=== PATIENT | male | born 1960 | race Caucasian/White ===

== ENCOUNTER → 2023-10-25 12:09 | Outpatient (REF) | payer OTHER, SELFPAY | LOC: DHCBC/DCA 12:09 | PROVIDERS: ATTENDING PHYSICIAN Internal Medicine Cardiovascular Disease; FAMILY PHYSICIAN Family Medicine | DX: Z01.810 Encounter for preprocedural cardiovascular examination (principal) | CPT/HCPCS: 78452; 93017; A9500; J2785 ==

== ENCOUNTER → 2023-10-26 15:50 | Outpatient (REF) | payer OTHER, SELFPAY | LOC: DHCBC HW 15:50 | PROVIDERS: ATTENDING PHYSICIAN Internal Medicine Cardiovascular Disease; FAMILY PHYSICIAN Family Medicine | DX: Z01.810 Encounter for preprocedural cardiovascular examination (principal); R06.09 Other forms of dyspnea; R07.9 Chest pain, unspecified; I10 Essential (primary) hypertension | CPT/HCPCS: 93306 ==

== ENCOUNTER 2023-10-27 06:10 | Day surgery (SDC) | payer OTHER, SELFPAY ==
[2023-10-27] VITALS (10 sets, daily range): BP systolic 137–149; BP diastolic 80–87; BMI 33.6
[2023-10-27] MEDS: NSS 283 ML IV (07:27)
[2023-10-27] MEDS: NSS 1000 IV (08:26)
--- NOTE | 2023-10-27 08:27 | ITS.CL.CATH ---
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
Cardiac Catheterization
Procedure Report:
CARDIAC CATHETERIZATION REPORT
Date of Procedure: 10/27/2023
Referring: Fredrick Duron MD
Indication: Exertional dyspnea with ischemic stress test preop for open vascular surgery (left lower extremity bypass)
HEMODYNAMIC DATA
AO: 136/78
LV: 136/22
LEFT VENTRICULOGRAPHY: Mild anterolateral hypokinesis with severe inferior hypokinesis. The LVEF is 48%.
CORONARY ANGIOGRAPHY
Dominance: Right
Left Main: Normal
LAD: Calcified eccentric 90% bifurcation lesion involving the mid LAD and large second septal pediatric cns. The remainder of the LAD system has mild luminal irregularities
Circumflex: The circumflex is a small caliber vessel which is occluded distal to the takeoff of a tiny OM1 and OM 2 vessels. The large OM 3 fills retrograde via left to left collaterals. There is at least one left posterolateral partially filling
retrograde via left to left collaterals.
RCA: The RCA is proximally occluded. A medium sized RPDA and two medium sized RPL vessels fill via [id number] collaterals
Closure Device: None-the procedure was performed via the right radial artery. The Chandana's test was normal prior to the procedure.
Radiation (mGy): 373
DAP (cm2.Gy): 32.2
Fluoroscopy time: 1.8 minutes
CONCLUSIONS
1: Elevated LVEDP
2: Mild anterolateral and severe inferior hypokinesis with EF 48%
3. Severe calcific triple-vessel CAD as described
4. Recommend elective CABG with grafting of the LAD, OM 3, and RPDA
Copy to: Fredrick Duron MD, Pooja Corbin MD, Miguel Salinas MD
Nash Hooper MD, [facility], [facility]
--- NOTE | 2023-10-27 08:37 | PTCARENOTE ---
CAMILO Varela, at pt bedside speaking to pt and pt's friend.
--- NOTE | 2023-10-27 09:33 | CONSULT.CT ---
Consultation
-
Date/Time Consultation Requested: 10/27/23
Date/Time Consultation Performed: 10/27/23929
Requesting Provider: Dr. Nash Hooper MD.
Performing Provider: Nichole Mccarthy PA-C on behalf of Dr. Miguel Salinas MD.
Reason for Consultation: Multivessel CAD, evaluate for coronary artery revascularization
Patient History
Physicians
Family Physician: Dr. Pooja Corbin
Outpatient Silk Screen Processor: Dr. Fredrick Duron MD.
Inpatient Silk Screen Processor: [facility], Research And Development Chemist: Dr. Nash Hooper MD.
History of Present Illness
Patient is an extremely pleasant 62-year-old male with PMH of HTN, HLD, BUTCH, current everyday smoker/tobacco abuse (smoked for total of 40 to 45 years. Currently 1 to 2 packs/day for the past 40-45 years prior to that roughly 1 pack/day),
daily alcohol use 3-5 beers 3 to 5 days/week, bilateral lower extremity popliteal artery aneurysms, left > right. Left originally being evaluated for surgical intervention with left lower extremity arterial bypass by Dr. Whiting, and obesity class 1,
BMI of 33.6.
Patient has been having ongoing chest discomfort as well as dyspnea upon exertion/shortness of breath. Patient originally began his cardiac workup for clearance in preparation for his vascular surgery by Dr. Whiting. Patient being evaluated for left
lower extremity arterial bypass. He was seen by Dr. Oliverio MD. as an outpatient in the office on 10/20/23 and subsequently set up for a nuclear stress test on for which was positive revealing basilar inferior lateral and mid inferior
lateral ischemia as well as a reduced ejection fraction of 27%.
On 10/26/2023 patient underwent 2D transthoracic echocardiogram revealing left ventricular ejection fraction of 55%, trace MR. No or AI. Trace TR, and normal pulmonic valve. LVSD:35, LVDD: 48, PAP's: 15-20. Given these results he was scheduled
for cardiac catheterization performed today 10/27/[address] Hooper revealing: LVEF 48%, LM: normal, LAD: 90% bifurcation lesion ivoloving the mid LAD and large second septal perferator. LCx: small, occluded distal to the takeoff of a tiny OM1,
and OM2. OM3 fills retrograde vial L-L collaterals. RCA: proximally occluded. Medium RPDA and RPL fill via L-R collaterals.
Following cardiac catheterization, cardiothoracic surgery service was consulted for coronary artery revascularization evaluation.
Past Medical History
Past Medical History: Other
HTN
HLD
BUTCH
Current everyday smoker/tobacco abuse (smoked for total of 40 to 45 years. Currently 1 to 2 packs/day for the past 40-45 years, prior to that roughly 1 pack/day)
Daily alcohol use 3-5 beers 3 to 5 days/week, bilateral lower extremity popliteal artery aneurysms, left > right. Left originally being evaluated for surgical intervention with left lower extremity arterial bypass by Dr. Whiting.
Obesity class 1, BMI of 33.6.
Past Surgical History
Past Surgical History: Other
Patient denies any previous surgical interventions
Dental History
Noncontributory
Family History
Mother: Still Living (Diagnosed with Basal cell carcinoma )
Father: at Age
Family Medical History: CAD
Social History
Alcohol: Daily (3-5 beers 3 to 5 days/week)
Drug: None
Tobacco: Smoker (Current everyday smoker/tobacco abuse (smoked for total of 40 to 45 years. Currently 1 to 2 packs/day for the past 40-45 years, prior to that roughly 1 pack/day))
Personal: Single
Living: Other (Girlfriend/significant other)
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
Allergies
Allergy/AdvReac Type Severity Reaction Status Date / Time
No Known Allergies Allergy Verified 10/27/23 07:35
Home Medications
Medication Instructions Recorded Confirmed Type
fluticasone fur. 200 mcg-umeclid 1 inh inhalation DAILY 10/19/23 10/27/23 History
62.5 mcg-vilant 25 mcg
inhalat.powder (Trelegy Ellipta)
lisinopril 20 mg tablet 20 mg PO DAILY 10/19/23 10/27/23 History
simvastatin 80 mg tablet 80 mg PO DAILY 10/19/23 10/27/23 History
aspirin 81 mg tablet,delayed 81 mg PO DAILY #0 tabs 10/27/23 10/27/23 Rx
release
carvedilol 6.25 mg tablet 6.25 mg PO Daily 10/27/23 10/27/23 History
nitroglycerin 0.4 mg sublingual 0.4 mg sublingual [id number] PRN 10/27/23 Rx
tablet chest pain #25 tabs
Review of Systems
-
History Source: Patient
General: Denies Fever, Weight Gain, Weight Loss or Fatigue
HEENT: Denies Visual Changes, Dysphagia, Hoarseness or Sore Throat
Respiratory: Reports SOB, ZHENG and Cough; Denies Asthma or PND
Cardiac: Reports Chest Pain; Denies CAD, Known Vascular Disease, Palpitations, Nausea, Vomiting, Diaphoresis or Edema
Abdomen/GI: Reports Abdominal Pain and Indigestion; Denies Reflux, Nausea, Vomiting, BRBPR or Ulcers
: Reports Nocturia (2x per night ); Denies Dysuria, Frequency, Urgency or Hematuria
Musculoskeletal: Denies Myalgias or Arthralgias
Skin: Denies Itching or Rash
Neurological: Denies CVA, TIA, Headaches, Syncope, Dizzy or Seizures
Vascular: Reports Claudication (Numbness in fingers and toes ) and Other (PAD)
Physical Exam
Vital Signs
Temp 97.7 F 10/27/23 07:05
Temp route: Oral 10/27/23 07:05
Pulse 80 10/27/23 09:15
Resp Rate 18 10/27/23 09:15
Blood pressure 144/80 10/27/23 09:15
Blood pressure extremity used: Left upper arm 10/27/23 08:22
Position: Sitting 10/27/23 08:22
MAP (cuff-Leanne Monitor) 106 10/27/23 08:26
SaO2 94 10/27/23 09:15
Oxygen Mode of Delivery Room air 10/27/23 09:15
Can the patient verbally communicate their pain? Yes 10/27/23 09:15
Actual Weight 208 lb 1.862 oz 10/27/23 07:02
Body Mass Index (BMI) 33.6 10/27/23 07:02
Diagnostic Studies
WILFRED's:
0.77 R
0.63 L
Nuclear Stress Test: 10/25/23
EF: 27%
basilar inferior lateral and mid inferior lateral ischemia
TTE: 10/26/23
EF 55%
MV: Trace MR
AV: No or AI
TV: Trace TR
PV: Normal
LVSD: 35, LVDD: 48, PAP's:15-20
Cardiac Catheterization: 10/27/23
Guidera
LVEF 48%
LM: normal
LAD: 90% bifurcation lesion ivoloving the mid LAD and large second septal perferator.
LCx: small, occluded distal to the takeoff of a tiny OM1, and OM2. OM3 fills retrograde vial L-L collaterals.
RCA: proximally occluded. Medium RPDA and RPL fill via L-R collaterals.
Exam
General: Well Developed, Well Nourished and No Apparent Distress
HEENT: Normocephalic, Moist Mucous Membranes, Atraumatic, PERRLA and EOMI
Neck: Trachea Midline and Mass
Respiratory: Crackles, Rhonchi and Other (Bilateral expiratory wheezes)
Cardiac: S1/S2 and Regular Rhythm; Negative Murmur, Rub or Gallop
GI: Soft, Non Tender, Normal Bowel Sounds and Distended (at baseline )
Rectal: Deferred by Provider
Skin: Warm and Dry; Negative Rash
Neuro: AO x 3, No Motor Deficits and CN X-XII Intact
Extremities: Negative Upper Level Edema, Lower Level Edema, Upper Level Cyanosis, Lower Level Cyanosis, Upper Level Clubbing or Lower Level Clubbing
Psych: Calm
Assessment / Plan
-
Assessment:
62-year-old male with PMH of:
HTN
HLD
BUTCH
Current everyday smoker/tobacco abuse (smoked for total of 40 to 45 years. Currently 1 to 2 packs/day for the past 40-45 years, prior to that roughly 1 pack/day)
Daily alcohol use 3-5 beers 3 to 5 days/week, bilateral lower extremity popliteal artery aneurysms, left > right. Left originally being evaluated for surgical intervention with left lower extremity arterial bypass by Dr. Whiting.
Obesity class 1, BMI of 33.6.
Now found to have newly diagnosed:
Multivessel CAD
Reduced EF ranging from 27, 48, and 55%
Plan:
Patient's case was reviewed with attending physician Dr. Miguel Salinas MD.
Patient will be seen as an outpatient in consultation with Dr. Brad MD. on 10/30/23 At 11:00 am.
Card with appointment time and date was provided to patient.
No further testing is warranted while the patient is recovering from cardiac catheterization.
Further preoperative testing and surgical date will be determined at patient's consultation with Dr. Brad MD.
== END 2023-10-27 11:28 | disposition home or self-care (01) ==
LOC: CATH 06:10
PROVIDERS: ATTENDING PHYSICIAN Internal Medicine Cardiovascular Disease; CONSULT PHYSICIAN Thoracic Surgery (Cardiothoracic Vascular Surgery); FAMILY PHYSICIAN Family Medicine; OTHER PHYSICIAN Internal Medicine Cardiovascular Disease
DX: I25.10 Atherosclerotic heart disease of native coronary artery without angina pectoris (principal); R07.9 Chest pain, unspecified; R06.09 Other forms of dyspnea; R94.39 Abnormal result of other cardiovascular function study; I10 Essential (primary) hypertension; E66.9 Obesity, unspecified; J44.9 Chronic obstructive pulmonary disease, unspecified; Z68.35 Body mass index [BMI] 35.0-35.9, adult; F17.210 Nicotine dependence, cigarettes, uncomplicated; E78.5 Hyperlipidemia, unspecified; G47.33 Obstructive sleep apnea (adult) (pediatric); Z79.82 Long term (current) use of aspirin
CPT/HCPCS: 36415; 71046; 80048; 85025; 85610; 85730; 86850; 86900; 86901; 87070; 93458; C1894; Q9967

== ENCOUNTER → 2023-11-08 11:21 | Outpatient (REF) | payer OTHER, SELFPAY | LOC: HWRAD 11:21 | PROVIDERS: ATTENDING PHYSICIAN Thoracic Surgery (Cardiothoracic Vascular Surgery); FAMILY PHYSICIAN Family Medicine | DX: I25.10 Atherosclerotic heart disease of native coronary artery without angina pectoris (principal); J44.9 Chronic obstructive pulmonary disease, unspecified | CPT/HCPCS: 94727; 94729; 36600; 71260; 94060; Q9967 ==

== ENCOUNTER 2023-11-14 05:35 | Inpatient (IN) | payer OTHER, SELFPAY ==
[2023-11-07 08:30] VITALS: BMI 34.4
[2023-11-07 09:10] LABS: Urine Albumin Negative (Neg - Trace); Urine Bilirubin Negative (Negative); Urine Color Yellow; Urine Glucose Negative (Negative); Urine Ketone Negative (Negative); Urine Leukocyte Negative (Negative); Urine Nitrite Negative (Negative); Urine Occult Blood Trace (Negative); Urine Urobilinogen Negative (Neg - 1+)
[2023-11-07 09:10] LABS: Hematocrit 49.3 % (39.0-52.0); Hemoglobin 17.4 g/dL (13.0-18.0); Mean Corp Hgb Conc. 35.3 g/dL (33.0-37.0); Mean Corpuscular Hgb 31.6 pg (27.0-31.0); Mean Corpuscular Volume 89.5 fL (80.0-94.0); Mean Platelet Volume 9.9 fL (7.4-10.4); Platelet Count 289 10^3/uL (130-400); Red Blood Cell Count 5.51 10^6/uL (4.70-6.10); Red Cell Dist. Width 12.1 % (11.5-14.5); White Blood Cell Count 8.9 10^3/uL (4.8-10.8)
[2023-11-07 09:21] LABS: INR 1.05; PT 13.5 Sec (11.4-14.6)
[2023-11-07 09:21] LABS: Urine Character Clear (Clear)
[2023-11-07 09:22] LABS: APTT 29.5 Sec (23.4-35.0)
[2023-11-07 09:33] LABS: Urine Red Blood Cell 0-2 /HPF (0-2); Urine White Cell 0-2 /HPF (0-5)
[2023-11-07 09:36] LABS: ALT (SGPT) 77 U/L (0-50); AST (SGOT) 32 U/L (17-59); Albumin 4.2 g/dl (3.5-5.0); Alkaline Phosphatase 95 U/L (38-126); Blood Urea Nitrogen 17 mg/dl (9-20); Calcium 9.4 mg/dl (8.4-10.2); Carbon Dioxide 25 mmol/L (22-30); Chloride 109 mmol/L (98-107); Direct Bilirubin 0.5 mg/dl (0.0-0.4); Estimated Creatinine Clearance > 125 ml/min; Glucose 117 mg/dl (70-99); Potassium 4.5 mmol/L (3.5-5.1); Sodium 141 mmol/L (135-145); Total Bilirubin 0.6 mg/dl (0.2-1.3); eGFR > 60.00
--- NOTE | 2023-11-07 10:06 | CM ---
Chart reviewed. Met with the patient in PAT. Patient is independent of ADLS, lives with his girlfriend in a 1 [address], 10 SUAD, 0 DME. 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 Reviewed preoperative and postoperative instructions, along with
showering guidelines. Gave the patient 2 soaps, along with the Cardiac Surgery Book. Patient is agreeable to a home visit by CT Transitional RN. Plan is for the patient to return home with CT Transitional RN. CM to follow
[2023-11-07 10:33] LABS: B.E. 0.6 mmol/L; HCO3 24.6 mmol/L (21-28); O2 Saturation % 96.1 % (94-98); PCO2 37 mmHg (35-48); PO2 77 mmHg (83-108); pH 7.43 (7.35-7.45)
[2023-11-07 10:36] LABS: O2 Therapy RA
[2023-11-07 11:38] LABS: Glycohemoglobin (HgbA1c) 6.5 % (4.0-5.6)
--- NOTE | 2023-11-07 12:09 | W.PN.UPDATE ---
Update Note
Progress Note Update
Procedure Type:�Isolated CABG
PERIOPERATIVE OUTCOME ESTIMATE %
Operative Mortality 0.377%
Morbidity & Mortality 3.8%
Stroke 0.428%
Renal Failure 0.3%
Reoperation 1.79%
Prolonged Ventilation 2.23%
Deep Sternal Wound Infection 0.451%
Long Hospital Stay (>14 days) 1.57%
Short Hospital Stay (<6 days)* 70%
Clinical Summary
Planned Surgery: Isolated CABG, Urgent, First cardiovascular surgery
Demographics: 62 year old, White, male, 94.4kg, 168cm, BMI: 33.4 kg/m�
Lab Values: Creatinine: 0.6 mg/dL, Hematocrit: 49.3%, WBC Count: 8.9 10�/�L, Platelet Count: 664800 cells/�L
Substance Abuse: Current smoker, Alcohol use: >=8 drinks/week
Risk Factors / Comorbidities: Diabetes Mellitus , Hypertension, Family Hx of CAD
Pulmonary RF: Mild CLD, Sleep Apnea
Cardiac Status: NYHA Class I, Ejection Fraction = 55%
Coronary Artery Disease: 3 vessels diseased, Proximal LAD Stenosis >=70%, Unstable Angina
Valve Disease: Trivial/Trace MR, Trivial/Trace TR
[2023-11-14] VITALS (15 sets, daily range): BP systolic 83–139; BP diastolic 57–81; BMI 32.8
--- NOTE | 2023-11-14 06:00 | PTCARENOTE ---
Pt arrived to CVICU for same day procedure, CABG; ABO and type and screen confirmed with blood bank; pt clipped and prepped; x2 home showers confirmed; CHG wipes provided, new gown and socks; confirmed pt removed all jewelry and/or dentures; pt
answered all admissions questions; home medications confirmed with pt; pre-op medications administered, see MAR; day of surgery explained to pt; pt resting comfortably in bed; awaiting CVOR.
[2023-11-14] MEDS: MAGNESIUM OXIDE 500 MG PO (06:12)
[2023-11-14] MEDS: LOPRESSOR 25 MG PO (06:12)
[2023-11-14] MEDS: PROTONIX 40 MG PO (06:12)
[2023-11-14] MEDS: BACTROBAN 2% OINTMENT 1 APPLIC NASAL ×2 (06:12→20:06)
--- NOTE | 2023-11-14 08:21 | W.CVOR.SURPR ---
CVOR Surgeon Immed Pre Op
-
I have examined this patient prior to performance of the scheduled procedure.
The patient's condition is unchanged from the time of the dictated/written History and
Physical and the patient is able to undergo the scheduled procedure.
[2023-11-14 09:14] LABS: ACT+ - POC 96 Seconds (82-134)
[2023-11-14 09:21] LABS: B.E. - POC -0.4 mmol/L; Glucose - POC 123 mg/dl (65-99); HCO3 - POC 26 mmol/L (21-29); Hematocrit - POC 47 % PCV (42-52); Hemodilution- POC No; Hemoglobin Calculated - POC 15.9; O2 Saturation %Calculated-POC 99.9 5 (92-96); PCO2 - POC 45 mmHg (35-45); PO2 - POC 326 mmHg (80-100); Potassium - POC 4.3 mmol/L (3.6-5.0); Sodium - POC 143 mmol/L (135-145); pH - POC 7.36 (7.35-7.45)
[2023-11-14 09:22] LABS: Urine Albumin Negative (Neg - Trace); Urine Bilirubin Negative (Negative); Urine Character Clear (Clear); Urine Color Yellow; Urine Glucose Negative (Negative); Urine Ketone Negative (Negative); Urine Leukocyte Negative (Negative); Urine Nitrite Negative (Negative); Urine Occult Blood Negative (Negative); Urine Specific Gravity 1.015 (<1.030); Urine Urobilinogen Negative (Neg - 1+); Urine pH 6.5 (5.0-9.0)
--- NOTE | 2023-11-14 09:58 | CM ---
Chart reviewed. Patient is in the OR. Patient is independent of ADLS, lives with his girlfriend in a 1 [address], 10 SUAD, 0 DME. 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 Plan is for the patient to return home with CT Transitional RN. CM to follow
[2023-11-14 11:16] LABS: ACT+ - POC 578 Seconds (82-134)
[2023-11-14 11:49] LABS: B.E. - POC 0.9 mmol/L; Glucose - POC 119 mg/dl (65-99); HCO3 - POC 27 mmol/L (21-29); Hematocrit - POC 33 % PCV (42-52); Hemodilution- POC Yes; Hemoglobin Calculated - POC 11.4; Ionized Calcium - POC 1.04 mmol/L (1.12-1.27); O2 Saturation %Calculated-POC 99.8 5 (92-96); PCO2 - POC 49 mmHg (35-45); PO2 - POC 231 mmHg (80-100); Potassium - POC 5.6 mmol/L (3.6-5.0); Sodium - POC 139 mmol/L (135-145); pH - POC 7.35 (7.35-7.45)
[2023-11-14 11:53] LABS: ACT+ - POC 498 Seconds (82-134)
[2023-11-14 12:11] LABS: ACT+ - POC 586 Seconds (82-134)
[2023-11-14 12:24] LABS: ACT+ - POC 533 Seconds (82-134)
[2023-11-14 12:26] LABS: B.E. - POC 1.6 mmol/L; Glucose - POC 134 mg/dl (65-99); HCO3 - POC 26 mmol/L (21-29); Hematocrit - POC 36 % PCV (42-52); Hemodilution- POC Yes; Hemoglobin Calculated - POC 12.1; Ionized Calcium - POC 1.08 mmol/L (1.12-1.27); O2 Saturation %Calculated-POC 99.9 5 (92-96); PCO2 - POC 41 mmHg (35-45); PO2 - POC 271 mmHg (80-100); Potassium - POC 6.1 mmol/L (3.6-5.0); Sodium - POC 140 mmol/L (135-145); pH - POC 7.41 (7.35-7.45)
[2023-11-14 12:45] LABS: B.E. - POC -1.8 mmol/L; Glucose - POC 146 mg/dl (65-99); HCO3 - POC 24 mmol/L (21-29); Hematocrit - POC 33 % PCV (42-52); Hemodilution- POC Yes; Hemoglobin Calculated - POC 11.3; Ionized Calcium - POC 1.46 mmol/L (1.12-1.27); O2 Saturation %Calculated-POC 99.7 5 (92-96); PCO2 - POC 43 mmHg (35-45); PO2 - POC 218 mmHg (80-100); Potassium - POC 5.2 mmol/L (3.6-5.0); Sodium - POC 141 mmol/L (135-145); pH - POC 7.35 (7.35-7.45)
[2023-11-14 12:45] LABS: ACT+ - POC 456 Seconds (82-134)
[2023-11-14 13:03] LABS: ACT+ - POC 101 Seconds (82-134)
[2023-11-14 13:07] LABS: B.E. - POC -4.7 mmol/L; Glucose - POC 127 mg/dl (65-99); HCO3 - POC 22 mmol/L (21-29); Hematocrit - POC 35 % PCV (42-52); Hemodilution- POC Yes; Hemoglobin Calculated - POC 11.8; Ionized Calcium - POC 1.27 mmol/L (1.12-1.27); O2 Saturation %Calculated-POC 97.5 5 (92-96); PCO2 - POC 48 mmHg (35-45); PO2 - POC 110 mmHg (80-100); Potassium - POC 4.4 mmol/L (3.6-5.0); Sodium - POC 144 mmol/L (135-145); pH - POC 7.27 (7.35-7.45)
--- NOTE | 2023-11-14 13:49 | W.PN.CT.SURG ---
CT Surgery Operative Note
-
Pre-op Diagnosis: cad
pvd
copd
Post-op Diagnosis: Same
Procedure: Cabg x 3
mcclellan- lad
ab- om
ao-svg-pda
Revh
ttfm
RSF
Primary Surgeon: Brad
Assisting Surgeons: Dash
Specimen: None
Cultures: None
Complications / Blood Loss: None
Findings: CHHAYA with preserved ef pre and post, no new wma
good conduit
good lad target
poor om and pda target
no clot in LUCA, completely occlude post clip
--- NOTE | 2023-11-14 14:21 | W.PN.UPDATE ---
Update Note
Progress Note Update
62 year old male electively admitted 11/14 for CABG
BP 69min
XC 39min
IV fluids: 1800
U.O.:� 640
Blood:� none
Wires:� V-wires
Inotropes:� none
Pressors:� none
Sedatives:� Precedex
�
NEURO: sedated on Precedex, pupils +1mm B/L
RESP: #8OT @22cm> 600/60%/16/5. Lungs clear B/L. 1 mediastinal (10cc on arrival) and R/L pleural (30cc on arrival) chest tubes to -20cm suction. Sanguineous drainage
CV: RRR +S1, S2, no S3, no�rub, no murmur. Dermabond to median sternotomy. RIJ intact w/o [place]. C.O 4.6/CI 2.3
ABD: round, soft, no BS
EXT: no edema, +2/4 DP pulses B/L, no femoral bruit, RLE DONI wrap intact; left radial A-line intact
: Snider with clear yellow urine
�
A/P: POD #0 s/p CABG x 3 SAMANIEGO-LAD; LEANDRO-OM3; SVG-PDA; LUCA exclusion #40mm clip
CHHAYA: EF�45-50%; small PFO w/left to right shunt; Stage I diastolic dysfunction, tr MR
- wean and extubate
# CAD
-will administer ASA within 6 hours post-op
- resume beta-bela, ASA/Plavix, Statin (change to Lipitor) with Amio use
# PAD (moderate LLE arterial insufficiency)
- outpatient f/u with Dr. Whiting
�
# acute surgical blood loss anemia-expected
- trend CBC
# COPD
- resume Trelegy Ellipta on DC
- Albuterol/ProAir
# Tobacco abuse
- lifelong smoking cessation
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
# ETOH use
- Precedex periop
- assess for withdrawl symptoms
�
# T2DM (A1C 6.5)-new diagnosis
- insulin infusion x 48h
- consult endocrinology
�
# Hyperlipidemia
- resume�simvastatin 80mg on DC (if not on concomitant Amio)
[2023-11-14] MEDS: NSS 500 IV (14:30)
[2023-11-14] MEDS: STERILE WATER FOR INJECTION 16 ML IV ×2 (14:30)
[2023-11-14] MEDS: ZINACEF 1500 MG IV ×2 (14:30)
--- NOTE | 2023-11-14 14:30 | PTCARENOTE ---
Patient report via phone at 1315pm: YARI Orantes. Patient received to cvicu at approx 1430pm status post CABG x 3/LUCA clip. USual lines, but no swan candi: utilizing Maldonado Hemosphere for minimally invasive calculations of CO/CI/SVR and SV. Remains
intubated/vented and sedated with precedex gtt. Nitro gtt to keep sbp via left radial ABP's 90 to 130mmHg. Left and right pleural chest tubes to -20cm wall suction/no air leak to 1 pleur evac. Temp epicardial v wire to Zilker Labstr[employer] box for backup rate
of 50bpm with mA 10: sensing patients intrinsic heart rate in the 80's (NSR with 1st degree avb.) See flowrecord for remaining assessments.
[2023-11-14 14:33] LABS: Glucose - Point of Care 133 mg/dl (70-99)
--- NOTE | 2023-11-14 14:36 | CON.INTV ---
Consultation
Consultation Request
Date/Time Consultation Requested: 11/14/2023 - 1316
Date/Time Consultation Performed: 11/14/2023 - 1410
Requesting Provider: Elif SOUZA
Performing Provider: Dr. Knowles
Reason for Consultation: s/p CABG
Medical History
-
Chief Complaint: Elective CABG
History of Present Illness:
62-year-old male with a past medical history of CAD, COPD, history of heavy tobacco use, hypertension/hyperlipidemia and PVD who presents with elective CABG. Patient known to Dr. Salinas with last office visit on 10/30/2023. Patient has known
three-vessel CAD and is symptomatic with exertional shortness of breath as well as lower extremity pain/numbness. He has not been experiencing chest pain. He was being evaluated for a left lower extremity bypass and his outpatient branch library clerk
performed preoperative testing that showed a positive stress test which was followed by a [facility] revealing three-vessel CAD. Discussion held with the patient and his significant other regarding his CAD and recommendations for CABG. Patient agreed for
surgical intervention and underwent CABG x 3 today with no complications and patient transferred to CVICU postoperatively with critical care services consulted for additional management/recommendations.
When saw the patient he was intubated/sedated. Girlfriend, Lilian, at bedside. Patient intubated on SIMV 18/500/60%/5 breathing at 18 breaths/min, VTe 450mL and PIP 15tpE2V. As per [employer]: CO/CI: 4.1/2.1, SV: 49, SVR: 1295. Heart rate: 87, BP:
121/71 via A-line, 99/67 via NIBP, SpO2 94%, RR: 18. Has a right/left pleural chest tube with mediastinal chest tube X1. He is on insulin drip at 3 units/h, nitro drip at 5mcg/min and precedex at 0.5mcg/kg/hr. He does awaken to tactile stimuli.
PMHx: Hypertension, hyperlipidemia, bilateral popliteal artery aneurysms, claudication, COPD, history of heavy tobacco use disorder, prediabetes mellitus, history of syncope, PVD, CAD
PSHx: Negative
Past Medical History
Past Medical History: Other (Above as per HPI)
Past Surgical History: Other (Above as per HPI)
Social History
Tobacco: Former Smoker (1-1 0.5 PPD x40 years -quit 10/22/2023)
Alcohol: Occasional
Drug: None
Employment: Employed ([employer])
Family History
Family History: Cancer (Mother: Basal cell carcinoma; brain tumor; sister: Breast cancer) and Hypertension (Father)
Allergies / Home Medications
Allergies
Allergy/AdvReac Type Severity Reaction Status Date / Time
protamine AdvReac Severe See Verified 11/14/23 14:31
comments
Home Medications
Medication Instructions Recorded Confirmed Last Taken Type
fluticasone fur. 200 mcg-umeclid 1 inh inhalation DAILY 10/19/23 11/14/23 11/13/23 08:00 History
62.5 mcg-vilant 25 mcg
inhalat.powder (Trelegy Ellipta)
lisinopril 20 mg tablet 20 mg PO DAILY 10/19/23 11/14/23 11/13/23 08:00 History
simvastatin 80 mg tablet 80 mg PO DAILY 10/19/23 11/14/23 11/13/23 08:00 History
aspirin 81 mg tablet,delayed 81 mg PO DAILY #0 tabs 10/27/23 11/14/23 11/13/23 08:00 Rx
release
carvedilol 6.25 mg tablet 6.25 mg PO Daily 10/27/23 11/14/23 11/13/23 20:00 History
nitroglycerin 0.4 mg sublingual 0.4 mg sublingual [id number] PRN 10/27/23 11/14/23 Unknown Rx
tablet chest pain #25 tabs
diltiazem HCl 240 mg PO DAILY 11/14/23 11/14/23 11/13/23 08:00 History
Review of Systems
-
Unable to Obtain full review of systems at this time due to: Patient Intubation
Vitals / Labs / Diagnostic Testing
Vital Signs
Temp Pulse Resp BP Pulse Ox
97.1 F 81 16 139/80 98
11/14/23 06:14 11/14/23 06:14 11/14/23 06:14 11/14/23 06:14 11/14/23 06:14
Laboratory Results
11/14/23
14:18
pH 7.29 L
pCO2 49 H
pO2 94
HCO3 23.6
O2 Delivery Level
Diagnostic Testing:
Physical Exam
-
HEENT: Normocephalic and Anicteric
Cardiovascular: S1/S2 and Peripheral Edema (Negative)
Respiratory: Clear, Wheeze (negative), Rales (negative), Rhonchi (negative), Accessory Resp Muscle Use (Negative) and Other (ETT in place; mechanical breath sounds heard bilaterally)
GI: Soft, Non Distended, Non Tender and Normal Bowel Sounds
Neurology: No Motor Deficits and Other (pupils equal at 3mm and reactive)
Skin: Warm and Dry
General: Other (intubated/sedated)
Assessment
-
Assessment: 62-year-old male with a past medical history of CAD, COPD, history of heavy tobacco use, hypertension/hyperlipidemia and PVD who presents with elective CABG. Patient known to Dr. Salinas with last office visit on 10/30/2023. Patient
has known three-vessel CAD and is symptomatic with exertional shortness of breath as well as lower extremity pain/numbness. He has not been experiencing chest pain. He was being evaluated for a left lower extremity bypass and his outpatient
branch library clerk performed preoperative testing that showed a positive stress test which was followed by a [facility] revealing three-vessel CAD. Discussion held with the patient and his significant other regarding his CAD and recommendations for CABG.
Patient agreed for surgical intervention and underwent CABG x 3 today with no complications and patient transferred to CVICU postoperatively with critical care services consulted for additional management/recommendations.
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
Impression:
#CAD s/p CABG x3 (POD#0)
#Acute respiratory acidosis
#COPD not in an acute exacerbation (suspected due to unremitting asthma given no emphysema on CT chest and DLco is normal on last PFTs on 11/07/2023)
#History of heavy tobacco use
#PVD
Plan:
Ventilator settings reviewed
FiO2 will be weaned
Minute ventilation will be adjusted
Arterial blood gases will be monitored
Spontaneous breathing trial will be attempted with hopeful extubation after anesthesia/sedation wear off
Maintain SpO2 >88%
prn nebulized bronchodilators
Pulmonary artery catheter parameters will be followed
Pressors/antihypertensive/inotropes/diuretics will be provided as needed
Monitor chest tube output (pleural chest tubes x2 and mediastinal chest tube x1)
Monitor hemoglobin
Monitor platelet count and coags
Transfuse blood product if needed
CT surgery managing chest tubes
Monitor blood sugar with goal BG 140-180mg/dL
Insulin drip per protocol
Aspiration precautions
VAP prevention protocol
DVT prophylaxis
Early nutrition
Early mobilization
Critical care statement: A total of 46 minutes of critical care time was provided for this patient today. This includes management of ventilator, spontaneous breathing trial, arterial blood gases, pressors, of unstable vital signs, evaluation of the
patient at bedside, reviewing the patient's pertinent medical records including radiographs, microbiology, laboratory evaluations, and discussion with primary team and critical care nursing.
Data:
CT Chest with IV contrast 11-08-2023:
Impression:
1. Moderate to severe coronary artery calcifications.
2. Small pericardial effusion.
3. Normal caliber thoracic aorta containing mild calcified atherosclerosis.
4. Tiny bilateral centrilobular pulmonary nodules most suspicious for respiratory bronchiolitis interstitial lung disease given the patient's smoking history.
PFTs - 11-07-2023
FEV1/FVC: 69 --> 69 with bronchodilator
FEV1: 69% --> 73% with bronchodilator (+7% change with BD)
FVC: 75% --> 80% (+6% change with BD)
EHS27-03%: 47% --> 64% (+38% change with BD)
T% (7.97L)
VC: 75%
FRC: 169%
RV: 210%
DLco: 101%
VA: 89% (5.64L)
DLco/VA: 105%
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 Evidence of air trapping and hyperinflation. Normal gas exchange capacity.
[2023-11-14 14:39] LABS: B.E. -3.4 mmol/L; HCO3 23.6 mmol/L (21-28); Hematocrit 43.8 % (39.0-52.0); Hemoglobin 15.1 g/dL (13.0-18.0); Ionized Calcium 1.15 mMOL/L (1.15-1.33); O2 Saturation % 97.3 % (94-98); PCO2 49 mmHg (35-48); PO2 94 mmHg (83-108); Platelet Count 215 10^3/uL (130-400); Potassium 3.9 mMOL/L (3.5-5.1); Sodium 138 mMOL/L (136-145); pH 7.29 (7.35-7.45)
[2023-11-14] MEDS: MORPHINE SULFATE 4 MG IV (14:42)
[2023-11-14] MEDS: VERSED 0.5 MG IV (14:46)
[2023-11-14] MEDS: KCL 50 IV ×2 (14:52→16:05)
[2023-11-14 14:55] LABS: Blood Urea Nitrogen 14 mg/dl (9-20); Estimated Creatinine Clearance > 125 ml/min; Glucose 151 mg/dl (70-99); Magnesium 2.5 mg/dl (1.6-2.3)
[2023-11-14] MEDS: CARDENE 200 IV (14:55)
[2023-11-14 15:09] LABS: APTT 32.3 Sec (23.4-35.0); INR 1.28; PT 16.1 Sec (11.4-14.6)
[2023-11-14] MEDS: CALCIUM CHLORIDE 10% SYRINGE 50 ML IV (15:15)
[2023-11-14] MEDS: CALCIUM CHLORIDE 10% SYRINGE 50 MG IV (15:15)
[2023-11-14 15:27] LABS: Glucose - Point of Care 144 mg/dl (70-99)
[2023-11-14] MEDS: NOVOLOG FLEXPEN SC ×2 (16:15→16:16)
[2023-11-14] MEDS: NSS (PRESERVATIVE FREE) IV (16:16)
[2023-11-14] MEDS: TYLENOL PO ×3 (16:17→20:07)
[2023-11-14] MEDS: PEPCID IV (16:17)
[2023-11-14] MEDS: MORPHINE SULFATE 2 MG IV (16:41)
--- NOTE | 2023-11-14 16:45 | W.PN.CD ---
Addendum entered and electronically signed by Miguel Reid MD 11/14/23 18:52:
I saw and examined the patient.
The QUALITY LAB TECHNICIAN's note was reviewed and I agree with the note.
s/p CABG x 3 SAMANIEGO-LAD; LEANDRO-OM3; SVG-PDA; LUCA exclusion #40mm clip on 11/14/[address] Salinas
- stable and in NSR
- continue post op care as per CT surgery
Original Note:
Today's Communication / Plan
-
Follow telemetry
Impression / Plan
-
Background: 62M with hyperlipidemia, hypertension, and current nicotine use who presented surgical preop cardiovascular exam found to have MVCAD presented for CABG
Impression/Plan:
CAD s/p CABG x 3 SAMANIEGO-LAD; LEANDRO-OM3; SVG-PDA; LUCA exclusion #40mm clip on 11/14/[address] Salinas
-CHHAYA with preserved EF pre and post, no new WMA
-EKG with prolonged QT, EKG in am
-Post op mgmt per CTS
HTN, home medication list has diltiazem, this was stopped in favor of carvedilol (10/20/23)
PFO, small, left to right shunt
COPD
Type II DM, Hgba1c 6.5%, on insulin gtt post op
Frequent ETOH consumption, no withdraw symptoms
HLD, goal LDL < 70, continue atorvastatin
PAD, follows with Dr. Whiting
Former tobacco abuse, 2 PPD for the last five years, quit 10/20/23
Subjective:
On CPAP wean.
Physical Exam
Vital Signs/Labs
Vital Signs
Temp Pulse Resp BP Pulse Ox
97.7 F 88 18 114/75 96
11/14/23 15:54 11/14/23 16:15 11/14/23 16:15 11/14/23 16:00 11/14/23 15:54
11/13/23 11/14/23 11/15/23
06:59 06:59 06:59
Actual Weight 92.1 kg
11/14/23 14:18
PT 16.1 Sec (11.4-14.6) H 11/14/23 14:18
INR 1.28 11/14/23 14:18
APTT 32.3 Sec (23.4-35.0) 11/14/23 14:18
Magnesium 2.5 mg/dl (1.6-2.3) H 11/14/23 14:18
Physical Exam
Constitutional: No acute distress and Comfortable
EENT: Anicteric and Moist mucous membranes
Cardiovascular: Rhythm & rate is regular, Pedal edema is absent, S1S2 is normal and Murmur/rub/gallop absent
Respiratory: Lungs clear to auscul. and Other (ETT to mechanical ventilation)
GI: Soft, Distention absent and Flat
Neuro/Psych: Other (sedated)
Other: Skin (warm and dry )
Data Reviewed
-
Date of Service: November 14, 2023
Medical Decision Making: External Notes
EKG: Report Reviewed by me
Echo: Report Reviewed by me
Labs: Labs Reviewed by me
Old Records: Reviewed
[2023-11-14 16:46] LABS: Glucose - Point of Care 113 mg/dl (70-99)
[2023-11-14 17:28] LABS: B.E. -2.6 mmol/L; HCO3 23.2 mmol/L (21-28); Ionized Calcium 1.34 mMOL/L (1.15-1.33); O2 Saturation % 96.4 % (94-98); PCO2 43 mmHg (35-48); PO2 85 mmHg (83-108); Potassium 5.1 mMOL/L (3.5-5.1); pH 7.34 (7.35-7.45)
[2023-11-14] MEDS: OFIRMEV 100 IV (17:28)
--- NOTE | 2023-11-14 17:30 | PTCARENOTE ---
Following direction. RASS -1. Diaphoretic/having intense pain: Elif MELTON ct surgery aware. OK to extubate. Pain regimen ordered
[2023-11-14] MEDS: TORADOL 15 MG IV ×2 (17:31→22:48)
--- NOTE | 2023-11-14 17:35 | PTCARENOTE ---
Extubated to 6l nc titrated down to 3L. Suctioned orally for large amount thick clear secretions. Oriented x 3. Neuro intact.
[2023-11-14 17:36] LABS: Glucose - Point of Care 116 mg/dl (70-99)
[2023-11-14] MEDS: ALBUMIN 5% 250 IV (17:47)
[2023-11-14 18:11] LABS: Hematocrit 43.1 % (39.0-52.0); Hemoglobin 14.9 g/dL (13.0-18.0); Platelet Count 247 10^3/uL (130-400)
[2023-11-14 18:41] LABS: Glucose - Point of Care 92 mg/dl (70-99)
[2023-11-14] MEDS: LIDOCAINE 4% PATCH TOPICAL (19:51)
[2023-11-14] MEDS: LIPITOR PO (19:51)
--- NOTE | 2023-11-14 20:00 | PTCARENOTE ---
Per [facility] C.O 5.7, C.I 2.8, SV 66, SVR 745.
[2023-11-14] MEDS: LOW STRENGTH ASPIRIN 81 MG PO (20:06)
[2023-11-14] MEDS: SENOKOT-S 1 TABLET PO (20:06)
[2023-11-14] MEDS: NSS (PRESERVATIVE FREE) 8 ML IV (20:06)
[2023-11-14] MEDS: LOPRESSOR PO ×2 (20:06→20:19)
[2023-11-14] MEDS: PEPCID 20 MG IV (20:07)
[2023-11-14] MEDS: STERILE WATER FOR INJECTION 8.30000000000000071 ML IV (20:22)
[2023-11-14] MEDS: ZINACEF 750 MG IV (20:22)
--- NOTE | 2023-11-14 20:30 | PTCARENOTE ---
Received pt from marla RN. Pt drowsy but arousable, AAOx4. Currently rated pain 1-2/10. MSAS 2. SR with first degree AV block on monitor, HR 80s.Distant heart tones. Epicardial Vwire to back up of 50/10, no pacing noted. + palpable right DP
pulses, weakly palpable left DP pulse. No edema noted. RIJ cordis with slik maintained with NSS KVO. Left radial tico flushed and zeroed.Pulse ox 95% on 2 L NC. Lung sounds diminished. CT x3 (L/R pleurals to one atrium and mediastinal to one
atrium) maintained to -20 cm wall suction, draining red fluid. Abdomen soft/nontender, obese, hypoactive BS. Snider catheter maintained and draining adequate amount of clear, yellow urine. All surgical sites C/D/I. Insulin gtt titrated per critical
care glycemic protocol. See work list for full assessment, VS and I&Os.
[2023-11-14 21:07] LABS: Glucose - Point of Care 115 mg/dl (70-99)
--- NOTE | 2023-11-14 22:00 | PTCARENOTE ---
Per [facility] C.O 6.5, C.I 3.2, SV 72, SVR 923.
[2023-11-14] MEDS: PACERONE 200 MG PO (22:09)
[2023-11-14] MEDS: LOPRESSOR 12.5 MG PO (22:48)
[2023-11-14 23:01] LABS: Glucose - Point of Care 108 mg/dl (70-99)
[2023-11-15] VITALS (26 sets, daily range): BP systolic 85–144; BP diastolic 40–86; PULSE 88; O2SAT 92–93; BMI 33.9
--- NOTE | 2023-11-15 | PTCARENOTE ---
Per [facility] C.O 5.9, C.I 2.9, SV 70, SVR 936.
--- NOTE | 2023-11-15 00:30 | PTCARENOTE ---
Assessment unchanged from previous, VSS, SR with first degree AV block on monitor. Nitro gtt started for BP. Insulin gtt continues to be titrated per critical care glycemic protocol. Pt resting comfortably at this time.
[2023-11-15] MEDS: TYLENOL PO (00:59)
[2023-11-15 03:35] LABS: Hematocrit 40.5 % (39.0-52.0); Hemoglobin 14.1 g/dL (13.0-18.0); Mean Corp Hgb Conc. 34.8 g/dL (33.0-37.0); Mean Corpuscular Hgb 31.1 pg (27.0-31.0); Mean Corpuscular Volume 89.4 fL (80.0-94.0); Mean Platelet Volume 10.6 fL (7.4-10.4); Platelet Count 238 10^3/uL (130-400); Red Blood Cell Count 4.53 10^6/uL (4.70-6.10); Red Cell Dist. Width 11.9 % (11.5-14.5); White Blood Cell Count 18.4 10^3/uL (4.8-10.8)
[2023-11-15] MEDS: ROXICODONE 10 MG PO ×2 (03:46→22:17)
[2023-11-15] MEDS: TYLENOL 650 MG PO ×5 (03:47→20:01)
[2023-11-15] MEDS: MORPHINE SULFATE 2 MG IV (03:58)
--- NOTE | 2023-11-15 04:02 | PTCARENOTE ---
Per [facility] C.O 6.3, C.I 3.2, SV 75, SVR 923.
[2023-11-15 04:09] LABS: Blood Urea Nitrogen 16 mg/dl (9-20); Calcium 8.5 mg/dl (8.4-10.2); Carbon Dioxide 24 mmol/L (22-30); Chloride 109 mmol/L (98-107); Estimated Creatinine Clearance > 125 ml/min; Glucose 99 mg/dl (70-99); Magnesium 2.2 mg/dl (1.6-2.3); Potassium 4.4 mmol/L (3.5-5.1); Sodium 136 mmol/L (135-145); eGFR > 60.00
--- NOTE | 2023-11-15 05:00 | PTCARENOTE ---
Assessment unchanged from previous. VSS. NSR on monitor, HR 80s. AM labs and EKG obtained. Slik removed per CVPA order.
--- NOTE | 2023-11-15 05:26 | W.PN.CT ---
Today's Communication / Plan
-
-pod #1
-no issues overnight
-CI 3.1, CO 6.2. Drips: on insulin 2.3. Precedex and Nitro are currently off.
-CT output: med 45/125 and 2 pleur 20/180 in 12/24 hrs
-anxious - better with Precedex. Consider Xanax
-deline
-continue insulin
-d/c Snider
-current meds (ASA, Lopressor, Amio, Lipitor, Mucinex). Consider Plavix
-encourage IS, OOB
-monitor for DT sxs (none overnight)
Assessment / Plan
-
- mv-CAD - s/p Cabg x3 (SAMANIEGO-LAD, free Kelsie 'off Samaniego' to OM, Ao-SVG-PDA); R EVH; LAAE with #[address] Salinas on 11/14/23, pod #1
- intraop CHHAYA: EF�45-50%; no new wma; small PFO w/left to right shunt; Stage I diastolic dysfunction, tr MR; no clot in LUCA, completely occluded post clip
- Ptotamine allergic reaction with bronchospasm and hypotension
- HTN
- HLD
- class 1 obesity (BMI 33)
- Diabetes (new dx, HgA1c 6.5)
- b/l PAD- follows with Dr. Whiting
- COPD
- Smoking [id number] yrs
- EtOH (beer 5 times/week)
- Acute postop atelectasis
- Acute postop hypovolemia with subsequent hypervolemia
� � � � � � � � � �
Discussed patient care with: Nursing and Care Team
Subjective
Procedure
- s/p Cabg x3 (SAMANIEGO-LAD, free Kelsie 'off Samaniego' to OM, Ao-SVG-PDA); R EVH; LAAE with #[address] Salinas on 11/14/23
-
Date of Service: November 15, 2023
Objective Data
-
PT 16.1 Sec (11.4-14.6) H 11/14/23 14:18
INR 1.28 11/14/23 14:18
APTT 32.3 Sec (23.4-35.0) 11/14/23 14:18
Vital Signs
Vital Signs
Temp Pulse Resp BP Pulse Ox
97.7 F 81 17 91/57 95
11/15/23 01:00 11/15/23 01:00 11/15/23 01:00 11/14/23 18:00 11/15/23 01:00
CT Intake/Output/Weight
11/14/23 11/14/23 11/15/23
06:59 18:59 06:59
Intake Total 479.9 / 611.2 131.3 / 611.2
Output Total 1165 / 1690 525 / 1690
Balance -685.1 / -1078.8 -393.7 / -1078.8
SaO2: 95
Physical Exam
-
General: Awake and AOx3
Cardiovascular: Regular rate & rhythm, No Murmurs and No Rub
Respiratory: Decreased Breath Sounds
Sternum: Stable
Incision: Clean, Dry and Dressing Intact
Extremities: No Edema (decreased DP and PT b/l)
Data Reviewed
-
Lab Results: Results Reviewed
Medications: Active Meds Reviewed
Chest X-Ray: Report Reviewed and Image Reviewed
ECG: Report Reviewed and Image Reviewed
[2023-11-15] MEDS: TORADOL 15 MG IV ×2 (06:20→11:45)
[2023-11-15] MEDS: ZINACEF 750 MG IV ×2 (06:20→14:32)
[2023-11-15] MEDS: STERILE WATER FOR INJECTION 8.30000000000000071 ML IV ×2 (06:21→14:32)
[2023-11-15 07:29] LABS: Glucose - Point of Care 114 mg/dl (70-99)
[2023-11-15 07:29] LABS: Glucose - Point of Care 104 mg/dl (70-99)
[2023-11-15 07:29] LABS: Glucose - Point of Care 105 mg/dl (70-99)
--- NOTE | 2023-11-15 07:50 | PN.DE.MGMTRT ---
Insulin Management
- -
11/15/2023 Diabetes Management Consult
Patient s/p CABG x 3 POD 1. PMH: HCL, HTN, COPD, current smoker, obesity, PAD, pre diabetes. Prior to admission was taking no medication for pre diabetes. On admission A1C 6.5%, new diagnosis of diabetes. Patient is currently receiving glycemic
protocol IV insulin , .6 to 2.3 units per hour, glucose range 92 to 144. Will continue glycemic protocol IV insulin today and assess for readiness to transition tomorrow.
Diabetes History
- -
Type of Diabetes: 2
Pre-Admission Diabetes Regimen
11/14/23 11/15/23
14:18 03:13
Creatinine 0.6 L 0.5 L
Lab Results
Hemoglobin A1c 6.5 % (4.0-5.6) H 11/07/23 08:45
Insulin Pump Settings
IP Diabetes Regimen
11/14/23 11/14/23 11/14/23
14:18 14:24 15:25
Glucose 151 H
POC Glucose 133 H 144 H
11/14/23 11/14/23 11/14/23
16:38 17:25 18:40
Glucose
POC Glucose 113 H 116 H 92
11/14/23 11/14/23 11/15/23
21:00 23:00 01:03
Glucose
POC Glucose 115 H 108 H 105 H
11/15/23 11/15/23 11/15/23
03:12 03:13 04:55
Glucose 99
POC Glucose 104 H 114 H
Patient Education
--- NOTE | 2023-11-15 07:51 | PTCARENOTE ---
Patient received from nightshift nurse. Patient is alert and oriented x4, very anxious. Has to be encouraged to perform tasks himself. NSR with occasional monomorphic PVCs. HR 80s-90s. Distant heart tones. V wire maintained to pacer box with
settings: VVI. HR 50, mA 10, sensitivity 2. L a-line maintained with BP 120s-130s/50s-60s. Correlates with RUE BP cuff 125/70. Palpable pulses. No edema. RIJ cordis maintained with KVO. PIV maintained. Insulin gtt maintained per critical care
glycemic protocol. RA. Oxygen saturation 93%. Upon auscultation, lung sounds diminished throughout. CTx3 maintained to -20cm wall suction. MS CT has small serosanguineous drainage. Bilateral pleural CTs have moderate red drainage. Abdomen round,
obese. Hypoactive BS. Snider maintained with kristian yellow urine. Normal UOP. Patient states he is passing gas. Sternal aquacell is clean, dry, intact. R groin puncture site is approximated and covered by codi bandage. R knee incision is approximated
and covered by codi bandage. Assist x1 OOB into the chair. Will continue to monitor.
[2023-11-15 08:02] LABS: Glucose - Point of Care 108 mg/dl (70-99)
--- NOTE | 2023-11-15 08:15 | W.PN.INTV ---
Today's Communication / Plan
Recommendations
Up OOB as tolerated
Pain control
Goal SpO2 >88%
prn duonebs
Encourage IS
Wean off insulin gtt as tolerated
Ice Skating Coach service will follow along while pt. remains CVICU status.
Assessment
-
Assessment: 62-year-old male with a past medical history of CAD, COPD, history of heavy tobacco use, hypertension/hyperlipidemia and PVD who presents with elective CABG. Patient known to Dr. Salinas with last office visit on 10/30/2023. Patient
has known three-vessel CAD and is symptomatic with exertional shortness of breath as well as lower extremity pain/numbness. He has not been experiencing chest pain. He was being evaluated for a left lower extremity bypass and his outpatient
force variation equipment tender performed preoperative testing that showed a positive stress test which was followed by a [facility] revealing three-vessel CAD. Discussion held with the patient and his significant other regarding his CAD and recommendations for CABG.
Patient agreed for surgical intervention and underwent CABG x 3 on 11/14/2023 with no complications and patient transferred to CVICU postoperatively with critical care services consulted for additional management/recommendations.
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
Impression:
#CAD s/p CABG x3 (POD#1)
#COPD not in an acute exacerbation (suspected due to unremitting asthma given no emphysema on CT chest and DLco is normal on last PFTs on 11/07/2023)
#History of heavy tobacco use
#PVD
#HTN
#Elevated A1C: 6.5 suspicious for DM type II
Plan:
Tolerated extubation
Encourage incentive spirometry
Increase activity as tolerated
Aspiration precautions
Maintain SpO2 >88%
prn nebulized bronchodilators
Pulmonary artery catheter and arterial line removed
Removal of R-IJ cordis as per primary team
Pressors have been weaned
Continue to monitor chest tube output (left and right pleural placed to bulbs today)
Follow hemoglobin
Continue to follow platelet count and coags
Transfuse blood product as needed with goal Hb>8g/dL, plt>50k
CT surgery managing chest tubes as well
Follow blood sugar while on insulin gtt
Insulin supplementation continues as needed
Early nutrition
Early mobilization
DVT prophylaxis
Ice Skating Coach service will follow along while patient remains CVICU status. Continue CVICU status while on insulin drip.
Critical care statement: A total of 41 minutes of critical care time was provided for this patient today. This includes management of ventilator, spontaneous breathing trial, arterial blood gases, pressors, of unstable vital signs, evaluation of the
patient at bedside, reviewing the patient's pertinent medical records including radiographs, microbiology, laboratory evaluations, and discussion with primary team and critical care nursing.
I personally reviewed the patient's pertinent medical records including radiographs, microbiology, laboratory evaluations, and discussion with primary team, and critical care nursing.
Data:
CXR 11-15-2023:
Discontinued endotracheal tube. Interval improvement in cardiomediastinal margins and previously noted mild vascular congestion. Mild atelectasis in the right perihilar region and medial right lower lobe as well as left upper lobe. No pneumothorax.
CT Chest with IV contrast 11-08-2023:
Impression:
1. Moderate to severe coronary artery calcifications.
2. Small pericardial effusion.
3. Normal caliber thoracic aorta containing mild calcified atherosclerosis.
4. Tiny bilateral centrilobular pulmonary nodules most suspicious for respiratory bronchiolitis interstitial lung disease given the patient's smoking history.
PFTs - 11-07-2023
FEV1/FVC: 69 --> 69 with bronchodilator
FEV1: 69% --> 73% with bronchodilator (+7% change with BD)
FVC: 75% --> 80% (+6% change with BD)
DQU42-58%: 47% --> 64% (+38% change with BD)
T% (7.97L)
VC: 75%
FRC: 169%
RV: 210%
DLco: 101%
VA: 89% (5.64L)
DLco/VA: 105%
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 Evidence of air trapping and hyperinflation. Normal gas exchange capacity.
Subjective Dataa
Subjective Data
Date of Service:
Date of Service: November 15, 2023
Chief Complaint: Ice Skating Coach Follow Up
Subjective:
Patient seen this morning. BP 128/71, heart rate 93 and saturating 94% on room air. He endorses postoperative pain in his chest. Right IJ cordis in place. Mediastinal chest tube pulled today; right/left pleural chest tubes placed to bulbs today.
Pulling about 500 cc from incentive spirometer. Has mucus in his chest that he feels. Difficult to expectorate given his chest pain. Denies shortness of breath, headache, abdominal pain, fevers or chills.
Review of Systems
General: Other (12 point ROS performed and is negative unless mentioned above.)
Objective Data
Data Reviewed
Vital Signs / I&O / Oxygen:
Vital Signs
Temp Pulse Resp BP Pulse Ox
98 F 88 24 130/67 94
11/15/23 08:00 11/15/23 08:49 11/15/23 08:00 11/15/23 09:00 11/15/23 09:00
Intake and Output
11/14/23 11/15/23 11/16/23
06:59 06:59 06:59
Intake Total 719.1 / 731.4 516.3 / 516.3
Output Total 1934 40 / 40
Balance -1215.9 / -1203.6 476.3 / 476.3
SaO2 [CPAP/PSV] 96
SaO2 [SIMV] 96
SaO2 94
Nasal Cannula flow liters per 2
minute
Physical Exam
General: Comfortable, Chills (negative) and Sweats (negative)
HEENT: Normocephalic and Anicteric
Cardiovascular: S1-S2 and Peripheral Edema (negative)
Respiratory: Clear, Wheeze (negative), Crackles (negative), Rhonchi (negative), Stridor (negative) and Chest Tube (pleural x2 placed to bulbs)
GI: Soft, Non Distended, Non Tender and Normal Bowel Sounds
Neurology: AO x 3
Skin: Warm and Dry
Labs/Micro/Reports
Lab Data
11/15/23 03:13
11/15/23 03:13
Laboratory Results
11/14/23 11/14/23
14:18 17:15
PT 16.1 H
INR 1.28
APTT 32.3
pH 7.29 L 7.34 L
pCO2 49 H 43
pO2 94 85
HCO3 23.6 23.2
O2 Delivery Level
[2023-11-15] MEDS: BACTROBAN 2% OINTMENT 1 APPLIC NASAL ×2 (08:47→20:07)
[2023-11-15] MEDS: FOLVITE 1 MG PO (08:48)
[2023-11-15] MEDS: NSS (PRESERVATIVE FREE) 8 ML IV (08:48)
[2023-11-15] MEDS: PEPCID 20 MG IV (08:48)
[2023-11-15] MEDS: LOPRESSOR 12.5 MG PO ×2 (08:48→14:36)
[2023-11-15] MEDS: SENOKOT-S 1 TABLET PO ×2 (08:49→20:00)
[2023-11-15] MEDS: PACERONE 200 MG PO ×3 (08:49→22:16)
[2023-11-15] MEDS: THIAMINE INJECTION 200 MG IV ×2 (08:49→16:08)
[2023-11-15] MEDS: MAGNESIUM OXIDE 500 MG PO ×2 (08:49→20:00)
[2023-11-15] MEDS: PLAVIX 75 MG PO (08:49)
[2023-11-15] MEDS: MUCINEX 600 MG PO ×2 (08:49→20:00)
[2023-11-15] MEDS: LOW STRENGTH ASPIRIN 81 MG PO (08:49)
--- NOTE | 2023-11-15 09:19 | W.PN.CD ---
Today's Communication / Plan
-
- continue post op care
Impression / Plan
-
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
Impression/Plan:
CAD s/p CABG x 3 SAMANIEGO-LAD; LEANDRO-OM3; SVG-PDA; LUCA exclusion #40mm clip on 11/14/[address] Salinas
-CHHAYA with preserved EF pre and post, no new WMA
-EKG with prolonged QT, EKG in am
-Post op mgmt per CTS
- on aspirin and plavix
HTN
- now on metoprolol 12.5 mg
- cont lisinopril when OK from surgical perspective
PFO, small, left to right shunt
COPD
Type II DM, Hgba1c 6.5%, on insulin gtt post op
Frequent ETOH consumption, no withdraw symptoms
HLD, goal LDL < 70, continue atorvastatin
PAD, follows with Dr. Whiting
Former tobacco abuse, 2 PPD for the last five years, quit 10/20/23
Subjective:
Out of bed in chair, anxious about what will happen on d/c
Physical Exam
Vital Signs/Labs
Vital Signs
Temp Pulse Resp BP Pulse Ox
98 F 88 24 144/70 94
11/15/23 08:00 11/15/23 08:49 11/15/23 08:00 11/15/23 08:49 11/15/23 08:00
11/14/23 11/15/23 11/16/23
06:59 06:59 06:59
Actual Weight 203 lb 0.732 oz 209 lb 14.081 oz
11/15/23 03:13
11/15/23 03:13
PT 16.1 Sec (11.4-14.6) H 11/14/23 14:18
INR 1.28 11/14/23 14:18
APTT 32.3 Sec (23.4-35.0) 11/14/23 14:18
Magnesium 2.2 mg/dl (1.6-2.3) 11/15/23 03:13
Physical Exam
Constitutional: Other (anxious appearing )
EENT: Anicteric
Cardiovascular: Rhythm & rate is regular and Pedal edema is absent
Respiratory: Respiratory effort normal and Lungs clear to auscul.
GI: Soft
Neuro/Psych: AO x 3
Data Reviewed
-
Date of Service: November 15, 2023
EKG: Tracing Personally Visualized and interpreted
Echo: Report Reviewed by me
Labs: Labs Reviewed by me
[2023-11-15] MEDS: LIDOCAINE 4% PATCH TOPICAL (09:48)
[2023-11-15] MEDS: NOVOLOG FLEXPEN 4 UNITS SC ×2 (09:49→11:53)
[2023-11-15 09:54] LABS: Glucose - Point of Care 119 mg/dl (70-99)
--- NOTE | 2023-11-15 11:07 | W.PN.ANS.POP ---
Anesthesia Post Operative
- Anesthesia Post Op Note
Vital Signs Stable-See Nursing Note: Yes
Airway Patent: Yes
Adequate Pain Control: Yes
Change in Mental Status: No
Current Postoperative Nausea & Vomiting: No
Anesthesia Complications: No
General Anesthetic Recall: No
Unplanned Admission: No
Post Op Hydration Adequate: Yes
--- NOTE | 2023-11-15 11:24 | PTCARENOTE ---
Vital signs stable. NSR. V wire maintained to pacerbox with settings: VVI. HR 50, mA 10, sensitivity 2. HR 90s. BP 128/71. RIJ cordis maintained with KVO. Insulin gtt maintained per critical care glycemic protocol. RA. Oxygen saturation 94%. Patient
laying in bed MS CT can be discontinued. Will continue to monitor.
[2023-11-15] MEDS: ROXICODONE 5 MG PO ×2 (11:45→18:16)
--- NOTE | 2023-11-15 11:47 | PTCARENOTE ---
MS CT discontinued per order and per protocol. Patient tolerated. Pleural CTs placed to bulbs -> L and R. New dressing applied.
[2023-11-15 11:53] LABS: Glucose - Point of Care 94 mg/dl (70-99)
[2023-11-15 13:55] LABS: Glucose - Point of Care 119 mg/dl (70-99)
--- NOTE | 2023-11-15 14:14 | CM ---
Pricing on Jardiance 10mg qd is covered under the patient's prescription plan at $90 for a 30 day supply. The patient does qualify for the $10 copay card.
Farixga 10mg qd is covered under the patient's prescription plan at $90 for a 30day supply. The patient does qualify for the free copay card. I placed the Farxiga card in his red discharge folder.
--- NOTE | 2023-11-15 14:26 | CM ---
Chart reviewed. Met with the patient and his significant other. Patient is independent of ADLS, lives with his significant other in a 1 STH, 10 SUAD, 0 DME. Plan is for the patient to return home with CT Transitional RN. CM to follow
[2023-11-15] MEDS: NSS IV (14:32)
[2023-11-15] MEDS: NOVOLIN R INSULIN INFUSION 100 IV (15:02)
--- NOTE | 2023-11-15 15:15 | PTCARENOTE ---
Patient received from previous RN sitting oob in chair, at bedside, AAO X 3. NSR via cm, SaO2 @ 95% on RA. RIJ Cordis w/kvo infusing. Insulin infusing peripherally, titrating per glycemic protocol. L and R pleural chest tubes to individual bulb
evacuators, reconstituted. All procedural sites stable. Patient and spouse updated to plan of care for the remainder of the day, in agreement. See work list for full assessment and interventions performed.
[2023-11-15 16:06] LABS: Glucose - Point of Care 104 mg/dl (70-99)
[2023-11-15 18:04] LABS: Glucose - Point of Care 97 mg/dl (70-99)
[2023-11-15] MEDS: NOVOLOG FLEXPEN SC (18:15)
[2023-11-15] MEDS: LIPITOR 40 MG PO (18:16)
--- NOTE | 2023-11-15 19:14 | PTCARENOTE ---
Assumed care of patient. NSR with PVCs. VSS on room air. Assessment per nursing flowsheet. Pt AOx3. Anxious. Family at bedside. Remains on insulin gtt per glycemic protocol. DTV. OOB to chair/walked on unit. All questions answered. Call curry at
bedside.
[2023-11-15] MEDS: PROTONIX 40 MG PO (20:00)
[2023-11-15] MEDS: LOPRESSOR 25 MG PO (20:02)
[2023-11-15 20:16] LABS: Glucose - Point of Care 107 mg/dl (70-99)
[2023-11-15 22:27] LABS: Glucose - Point of Care 130 mg/dl (70-99)
[2023-11-16] VITALS (18 sets, daily range): BP systolic 91–135; BP diastolic 42–79; PULSE 100; O2SAT 94; BMI 33.9
[2023-11-16 00:17] LABS: Glucose - Point of Care 94 mg/dl (70-99)
[2023-11-16] MEDS: TYLENOL 650 MG PO ×6 (00:20→19:42)
[2023-11-16] MEDS: THIAMINE INJECTION 200 MG IV ×3 (00:20→16:15)
[2023-11-16] MEDS: ATIVAN 0.5 MG PO (00:20)
--- NOTE | 2023-11-16 00:36 | PTCARENOTE ---
NSR. VSS, Sats 90% on RA placed on 2L NC no 95%. Oxycodone administered for pain PRN. Assessment unchanged. Remains on IV insulin per glycemic protocol. Pt with productive cough. Cordis positional, dressing changed.
[2023-11-16 02:07] LABS: Glucose - Point of Care 108 mg/dl (70-99)
[2023-11-16] MEDS: ROXICODONE 10 MG PO ×5 (02:45→21:22)
[2023-11-16 03:35] LABS: Hematocrit 35.5 % (39.0-52.0); Hemoglobin 12.6 g/dL (13.0-18.0); Mean Corp Hgb Conc. 35.5 g/dL (33.0-37.0); Mean Corpuscular Hgb 31.5 pg (27.0-31.0); Mean Corpuscular Volume 88.8 fL (80.0-94.0); Mean Platelet Volume 10.6 fL (7.4-10.4); Platelet Count 204 10^3/uL (130-400); Red Cell Dist. Width 12.3 % (11.5-14.5); White Blood Cell Count 16.4 10^3/uL (4.8-10.8)
[2023-11-16 03:56] LABS: Blood Urea Nitrogen 22 mg/dl (9-20); Calcium 8.6 mg/dl (8.4-10.2); Carbon Dioxide 30 mmol/L (22-30); Chloride 104 mmol/L (98-107); Estimated Creatinine Clearance > 125 ml/min; Glucose 86 mg/dl (70-99); Potassium 4.4 mmol/L (3.5-5.1); Sodium 136 mmol/L (135-145); eGFR > 60.00
--- NOTE | 2023-11-16 03:56 | PTCARENOTE ---
NSR. VSS. Remains on 2L. IV insulin per glycemic protocol. Cordis remains positional, flushes and + blood return. Pt slept minimally. C/o pain, prn oxycodone and scheduled tylenol administered. Pt moving from bed, to sitting frequently for comfort.
[2023-11-16 04:25] LABS: Glucose - Point of Care 91 mg/dl (70-99)
[2023-11-16 06:06] LABS: Glucose - Point of Care 117 mg/dl (70-99)
--- NOTE | 2023-11-16 06:09 | PTCARENOTE ---
Trialed on RA. Pt 90-91%. Pt placed back on 2L, sating 95%.
--- NOTE | 2023-11-16 06:38 | W.PN.CT ---
Today's Communication / Plan
-
-pod #2
-no significant issues overnight
-Cordis is very positional- likely d/c soon
-pleur CTs output (bulbs): L 155/325 and R 25/70 in 12/24 hrs
-increase BB (for tachycardia) if BP allows (on Coreg preop)
-consider Lasix
-prn Ativan bid for anxiety
-no sign of DT (pt states that quit alcohol and smoking 1 mos ago)
-current meds (ASA, Plavix, Lipitor, Lopressor 25 bid, Amio, Protonix, Mucinex)
-encourage IS (600 so far), OOB, ambulate
Assessment / Plan
-
- mv-CAD - s/p Cabg x3 (SAMANIEGO-LAD, free Kelsie 'off Samaniego' to OM, Ao-SVG-PDA); R EVH; LAAE with #[address] Salinas on 11/14/23, pod #2
- intraop CHHAYA: EF�45-50%; no new wma; small PFO w/left to right shunt; Stage I diastolic dysfunction, tr MR; no clot in LUCA, completely occluded post clip
- Ptotamine allergic reaction with bronchospasm and hypotension
- HTN
- HLD
- class 1 obesity (BMI 33)
- Diabetes (new dx, HgA1c 6.5)
- b/l PAD- follows with Dr. Whiting
- COPD
- Smoking [id number] yrs-stopped 1 mos ago
- EtOH (beer 5 times/week)-stopped 1 mos ago
- Anxiety
- Acute postop atelectasis
- Acute postop hypovolemia with subsequent hypervolemia
� � � � � � � � � �
Discussed patient care with: Nursing and Care Team
Subjective
Procedure
- s/p Cabg x3 (SAMANIEGO-LAD, free Kelsie 'off Samaniego' to OM, Ao-SVG-PDA); R EVH; LAAE with #[address] Salinas on 11/14/23
-
Date of Service: November 16, 2023
Objective Data
-
PT 16.1 Sec (11.4-14.6) H 11/14/23 14:18
INR 1.28 11/14/23 14:18
APTT 32.3 Sec (23.4-35.0) 11/14/23 14:18
Vital Signs
Vital Signs
Temp Pulse Resp BP Pulse Ox
99.2 F 93 18 110/70 96
11/15/23 23:00 11/16/23 02:00 11/16/23 02:00 11/16/23 02:00 11/16/23 02:00
CT Intake/Output/Weight
11/15/23 11/15/23 11/16/23
06:59 18:59 06:59
Intake Total 239.2 / 731.4 1350.3 / 1562.9 212.6 / 1562.9
Output Total 770 / 1960 585 / 875 290 / 875
Balance -530.8 / -1228.6 765.3 / 687.9 -77.4 / 687.9
SaO2: 96
Physical Exam
-
General: Awake and AOx3
Cardiovascular: Regular rate & rhythm, No Murmurs and No Rub
Respiratory: Rales (at bases b/l. No wheeze) and Decreased Breath Sounds
Sternum: Stable
Incision: Clean, Dry and Dressing Intact
Extremities: No Edema
Data Reviewed
-
Lab Results: Results Reviewed
Medications: Active Meds Reviewed
Chest X-Ray: Report Reviewed and Image Reviewed
ECG: Report Reviewed and Image Reviewed
--- NOTE | 2023-11-16 07:53 | PN.DE.MGMTRT ---
Insulin Management
- -
11/15/2023 Diabetes Management Consult
Patient s/p CABG x 3 POD 1. PMH: HCL, HTN, COPD, current smoker, obesity, PAD, pre diabetes. Prior to admission was taking no medication for pre diabetes. On admission A1C 6.5%, new diagnosis of diabetes. Patient is currently receiving glycemic
protocol IV insulin , .6 to 2.3 units per hour, glucose range 92 to 144. Will continue glycemic protocol IV insulin today and assess for readiness to transition tomorrow.
11/16/2023 Diabetes Management Follow up
POD 2 s/p CABG x 3. Doing well. Glucose remained stable, 97 to 130, on glycemic protocol overnight, requiring .8 to to 2.6 units of insulin per hour. Will start Farxiga 10 mg daily, first dose now and metformin 500 mg BID first dose now. Will
continue glycemic protocol until after lunch.
Will provide and instruct on glucose monitor today.
Diabetes History
- -
Type of Diabetes: 2
Pre-Admission Diabetes Regimen
11/16/23
02:53
Creatinine 0.6 L
Lab Results
Hemoglobin A1c 6.5 % (4.0-5.6) H 11/07/23 08:45
Insulin Pump Settings
IP Diabetes Regimen
11/15/23 11/15/23 11/15/23
08:00 09:53 11:51
Glucose
POC Glucose 108 H 119 H 94
11/15/23 11/15/23 11/15/23
13:53 16:05 18:02
Glucose
POC Glucose 119 H 104 H 97
11/15/23 11/15/23 11/16/23
20:13 22:21 00:16
Glucose
POC Glucose 107 H 130 H 94
11/16/23 11/16/23 11/16/23
02:05 02:53 04:23
Glucose 86
POC Glucose 108 H 91
11/16/23
06:04
Glucose
POC Glucose 117 H
Meal type: Breakfast
Amount consumed: 90%
Patient Education
--- NOTE | 2023-11-16 08:00 | PTCARENOTE ---
pt received from previous RN, oriented, OOB in chair. SR on the monitor, HR 90s. V wire insulated. SBP 100-120s. pt on RA 94% POX. lungs diminished in bases, IS encouraged. CT x2 to bulb. pt abdomen s/n, denies n/v. +BS, +flatus. tolerating diet.
voids. sternal aquacel intact, chest tube dressing intact. R groin c/d/i. R knee aquacel intact. RIJ cordis maintained. PIV. insulin gtt running as ordered. see worklist for VS, I&O, and assessment.
[2023-11-16] MEDS: PROTONIX 40 MG PO (08:51)
[2023-11-16] MEDS: FARXIGA 10 MG PO (08:51)
[2023-11-16] MEDS: PACERONE 200 MG PO ×3 (08:51→21:23)
[2023-11-16] MEDS: FOLVITE 1 MG PO (08:51)
[2023-11-16] MEDS: MUCINEX 600 MG PO ×2 (08:51→19:43)
[2023-11-16] MEDS: LIDOCAINE 4% PATCH 1 PATCH TOPICAL (08:51)
[2023-11-16] MEDS: SENOKOT-S 1 TABLET PO ×2 (08:51→19:43)
[2023-11-16] MEDS: MAGNESIUM OXIDE 500 MG PO ×2 (08:51→19:43)
[2023-11-16] MEDS: GLUCOPHAGE 500 MG PO ×2 (08:52→17:13)
[2023-11-16] MEDS: PLAVIX 75 MG PO (08:52)
[2023-11-16] MEDS: LOW STRENGTH ASPIRIN 81 MG PO (08:52)
[2023-11-16] MEDS: LOPRESSOR 25 MG PO ×2 (08:52→19:43)
[2023-11-16] MEDS: NOVOLOG FLEXPEN SC ×3 (09:27→16:24)
--- NOTE | 2023-11-16 09:49 | W.PN.INTV ---
Today's Communication / Plan
Recommendations
Up OOB as tolerated
Pain control
Goal SpO2 >88%
prn duonebs
Encourage IS
Patient is now CVICU�telemetry status. Pulmonary/sternman service will sign off. Please reconsult if there are any additional questions/concerns, or if patient's respiratory status deteriorates.
Assessment
-
Assessment: 62-year-old male with a past medical history of CAD, COPD, history of heavy tobacco use, hypertension/hyperlipidemia and PVD who presents with elective CABG. Patient known to Dr. Salinas with last office visit on 10/30/2023. Patient
has known three-vessel CAD and is symptomatic with exertional shortness of breath as well as lower extremity pain/numbness. He has not been experiencing chest pain. He was being evaluated for a left lower extremity bypass and his outpatient
laundry worker performed preoperative testing that showed a positive stress test which was followed by a [facility] revealing three-vessel CAD. Discussion held with the patient and his significant other regarding his CAD and recommendations for CABG.
Patient agreed for surgical intervention and underwent CABG x 3 on 11/14/2023 with no complications and patient transferred to CVICU postoperatively with critical care services consulted for additional management/recommendations.
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
Impression:
#CAD s/p CABG x3 (POD#2)
#COPD not in an acute exacerbation (suspected due to unremitting asthma given no emphysema on CT chest and DLco is normal on last PFTs on 11/07/2023)
#History of heavy tobacco use
#PVD
#HTN
#Elevated A1C: 6.5 suspicious for DM type II
Plan:
Encourage incentive spirometry
Increase activity as tolerated
Aspiration precautions
Maintain SpO2 >88%
prn nebulized bronchodilators
Pulmonary artery catheter and arterial line removed
Continue to monitor chest tube output (left pleural to bulbs)
Follow hemoglobin
Continue to follow platelet count and coags
Transfuse blood product as needed with goal Hb>8g/dL, plt>50k
CT surgery managing chest tubes
Follow blood sugar with goal BG 140-180mg/dL
Insulin supplementation continues as needed
Early nutrition
Early mobilization
DVT prophylaxis
Patient is now CVICU�telemetry status. Pulmonary/sternman service will sign off. Thank you for allowing us to be involved in the care of this patient. Please reconsult if there are any additional questions/concerns, or if patient's respiratory
status deteriorates.
I personally reviewed the patient's pertinent medical records including radiographs, microbiology, laboratory evaluations, and discussion with primary team, and critical care nursing.
Data:
CXR 11-16-2023:
1. Linear opacities bilaterally most suggestive of subsegmental or discoid atelectasis.
2. Haziness of left hemidiaphragm, which may represent left basilar subsegmental atelectasis and/or small left pleural effusion.
CXR 11-15-2023:
Discontinued endotracheal tube. Interval improvement in cardiomediastinal margins and previously noted mild vascular congestion. Mild atelectasis in the right perihilar region and medial right lower lobe as well as left upper lobe. No pneumothorax.
CT Chest with IV contrast 11-08-2023:
Impression:
1. Moderate to severe coronary artery calcifications.
2. Small pericardial effusion.
3. Normal caliber thoracic aorta containing mild calcified atherosclerosis.
4. Tiny bilateral centrilobular pulmonary nodules most suspicious for respiratory bronchiolitis interstitial lung disease given the patient's smoking history.
PFTs - 11-07-2023
FEV1/FVC: 69 --> 69 with bronchodilator
FEV1: 69% --> 73% with bronchodilator (+7% change with BD)
FVC: 75% --> 80% (+6% change with BD)
YRY01-48%: 47% --> 64% (+38% change with BD)
T% (7.97L)
VC: 75%
FRC: 169%
RV: 210%
DLco: 101%
VA: 89% (5.64L)
DLco/VA: 105%
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 Evidence of air trapping and hyperinflation. Normal gas exchange capacity.
Subjective Dataa
Subjective Data
Date of Service:
Date of Service: November 16, 2023
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
Subjective:
Patient seen at bedside. He is sitting in chair. Girlfriend at bedside. The patient feels much better today. Pulling about 1 L from incentive spirometer. Has a left-sided pleural chest tube which is now to bulb. Currently on room air
saturating 100% and breathing comfortably.
Review of Systems
General: Other (12 point ROS performed and is negative unless mentioned above.)
Objective Data
Data Reviewed
Vital Signs / I&O / Oxygen:
Vital Signs
Temp Pulse Resp BP Pulse Ox
97.9 F 92 20 112/60 94
11/16/23 03:38 11/16/23 06:00 11/16/23 05:00 11/16/23 06:00 11/16/23 08:00
Intake and Output
11/15/23 11/16/23 11/17/23
06:59 06:59 06:59
Intake Total 719.1 / 731.4 1608.1 / 1608.1
Output Total 1934 / 1960 1340 / 1340
Balance -1215.9 / -1228.6 268.1 / 268.1 -18 / -18
SaO2 [CPAP/PSV] 96
SaO2 [SIMV] 96
SaO2 94
Nasal Cannula flow liters per 2
minute
Physical Exam
General: Comfortable, Chills (negative) and Sweats (negative)
HEENT: Normocephalic and Anicteric
Cardiovascular: S1-S2 and Peripheral Edema (negative)
Respiratory: Clear, Wheeze (negative), Crackles (negative), Rhonchi (negative), Stridor (negative) and Chest Tube (pleural x1 placed to bulbs)
GI: Soft, Non Distended, Non Tender and Normal Bowel Sounds
Neurology: AO x 3 and Tremors (n)
Skin: Warm and Dry
Labs/Micro/Reports
Lab Data
11/16/23 02:53
11/16/23 02:53
[2023-11-16 11:07] LABS: Glucose - Point of Care 100 mg/dl (70-99)
[2023-11-16 11:07] LABS: Glucose - Point of Care 96 mg/dl (70-99)
[2023-11-16 11:07] LABS: Glucose - Point of Care 91 mg/dl (70-99)
[2023-11-16] MEDS: BACTROBAN 2% OINTMENT 1 APPLIC NASAL ×2 (11:28→19:43)
[2023-11-16] MEDS: TORADOL 15 MG IV (11:28)
[2023-11-16 12:06] LABS: Glucose - Point of Care 108 mg/dl (70-99)
--- NOTE | 2023-11-16 12:35 | PTCARENOTE ---
pt VSS, pt placed in bed. R pleural CT dc'd as ordered, L pleural CT to bulb as ordered. chest tube dressing c/d/i. pt OOB to chair for lunch.
--- NOTE | 2023-11-16 12:48 | W.PN.CD ---
Today's Communication / Plan
-
OOB ambulate when able
cont post op care
ECG today
Impression / Plan
-
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
Impression/Plan:
CAD s/p CABG x 3 SAMANIEGO-LAD; LEANDRO-OM3; SVG-PDA; LUCA exclusion #40mm clip on 11/14/[address] Salinas
-CHHAYA with preserved EF pre and post, no new WMA
-Repeat ECG
-Post op mgmt per CTS
- on aspirin and plavix
- left sided severe chest pain likely contributing to tachycardia
HTN
- now on metoprolol 25 mg
PFO, small, left to right shunt
COPD
Type II DM, Hgba1c 6.5% SGLT2i added
Frequent ETOH consumption, no withdraw symptoms
HLD, goal LDL < 70, continue atorvastatin
PAD, follows with Dr. Whiting
Former tobacco abuse, 2 PPD for the last five years, quit 10/20/23
Subjective:
Continues with left sided pain, otherwise feeling oK
Physical Exam
Vital Signs/Labs
Vital Signs
Temp Pulse Resp BP Pulse Ox
98 F 99 20 125/68 94
11/16/23 08:00 11/16/23 12:03 11/16/23 12:00 11/16/23 12:03 11/16/23 12:00
11/15/23 11/16/23 11/17/23
06:59 06:59 06:59
Actual Weight 209 lb 14.081 oz 209 lb 14.081 oz
11/16/23 02:53
11/16/23 02:53
PT 16.1 Sec (11.4-14.6) H 02/27/24 14:18
INR 1.28 11/14/23 14:18
APTT 32.3 Sec (23.4-35.0) 11/14/23 14:18
Magnesium 2.2 mg/dl (1.6-2.3) 11/15/23 03:13
Physical Exam
Constitutional: No acute distress
Cardiovascular: Rhythm & rate is regular
Respiratory: Respiratory effort normal and Lungs clear to auscul.
GI: Soft
Neuro/Psych: Alert and Oriented
Data Reviewed
-
Date of Service: November 16, 2023
EKG: Tracing Personally Visualized and interpreted
Labs: Labs Reviewed by me
[2023-11-16 13:20] LABS: Glucose - Point of Care 107 mg/dl (70-99)
[2023-11-16] MEDS: NSS IV (14:19)
[2023-11-16 14:23] LABS: Glucose - Point of Care 120 mg/dl (70-99)
--- NOTE | 2023-11-16 14:54 | CM ---
Chart reviewed. Patient was OOB sitting in the chair. Patient is independent of ADLS, lives with his girlfriend in a 1 S[address], 10 SUAD, 0 DME. Patient was expressing concern that his girlfriend works food production manager. Plan is for the patient to return
home with CT Transitional RN. CM to follow
--- NOTE | 2023-11-16 16:00 | PTCARENOTE ---
pt VSS, HALEIGH galeana dc'd. pt OOB to chair. insulin gtt dc'd as ordered. pt ambulates independently in room.
[2023-11-16] MEDS: LIPITOR 40 MG PO (17:14)
[2023-11-16 17:37] LABS: Glucose - Point of Care 110 mg/dl (70-99)
--- NOTE | 2023-11-16 20:47 | PTCARENOTE ---
assumed care of patient @ 1900. received pt sitting in chair, AOX3, slightly anxious at baseline. NSR/ST on monitor. V wire insulated. Lungs clear on room air. L CT to bulb suction. Voiding in urinal. +BS no BM yet. Sternum dressing CDI with old
drainage, CT dressing GDI. R hand #18 present. pt resting comfortably in chair, call curry within reach
[2023-11-16 21:27] LABS: Glucose - Point of Care 114 mg/dl (70-99)
[2023-11-16] MEDS: LOPRESSOR 12.5 MG PO (21:49)
--- NOTE | 2023-11-16 23:40 | PTCARENOTE ---
Addendum entered by Julio Ibarra RN 11/17/23 01:47:
0130- HR 110s-120s, BP 89/64 - CTPA aware
Original Note:
2340 - pt up using the bathroom and went into afib HR 170s. Assisted back to bed - BP stable, pt stated felt heart racing and got chills. 5 of lopressor IV given, IV nurse by to put in new IV - able to place 22 in R AC. Amio bolus and drip started,
followed by additional 2.5 of IV lopressor. PO ativan given for nerves. Afterwards, pt with moderate pain, toradol and tylenol given. pt now resting comfortably in bed currently, HR 110s-120, BP 89/64 - CTPA aware
[2023-11-17] VITALS (13 sets, daily range): BP systolic 89–132; BP diastolic 53–95; PULSE 73; O2SAT 94–96; BMI 33.9
[2023-11-17] MEDS: LOPRESSOR 5 MG IV
[2023-11-17] MEDS: ATIVAN 0.5 MG PO ×2 (00:07→12:17)
[2023-11-17] MEDS: CORDARONE 103 MG IV ×2 (00:32→03:59)
[2023-11-17] MEDS: CORDARONE 518 MG IV (00:33)
[2023-11-17 00:37] LABS: Hematocrit 35.6 % (39.0-52.0); Hemoglobin 12.5 g/dL (13.0-18.0); Mean Corp Hgb Conc. 35.1 g/dL (33.0-37.0); Mean Corpuscular Hgb 31.5 pg (27.0-31.0); Mean Corpuscular Volume 89.7 fL (80.0-94.0); Mean Platelet Volume 10.2 fL (7.4-10.4); Platelet Count 206 10^3/uL (130-400); Red Blood Cell Count 3.97 10^6/uL (4.70-6.10); Red Cell Dist. Width 11.9 % (11.5-14.5); White Blood Cell Count 16.7 10^3/uL (4.8-10.8)
[2023-11-17 00:52] LABS: Blood Urea Nitrogen 20 mg/dl (9-20); Calcium 8.6 mg/dl (8.4-10.2); Carbon Dioxide 27 mmol/L (22-30); Chloride 101 mmol/L (98-107); Estimated Creatinine Clearance > 125 ml/min; Glucose 112 mg/dl (70-99); Sodium 132 mmol/L (135-145); eGFR > 60.00
[2023-11-17] MEDS: TYLENOL 650 MG PO ×2 (00:56→12:07)
[2023-11-17] MEDS: LOPRESSOR 2.5 MG IV (00:57)
[2023-11-17 00:58] LABS: Potassium 4.2 mmol/L (3.5-5.1)
[2023-11-17] MEDS: THIAMINE INJECTION 200 MG IV ×3 (00:59→15:17)
[2023-11-17] MEDS: TORADOL 15 MG IV ×2 (01:00→17:31)
[2023-11-17] MEDS: TYLENOL PO (04:30)
--- NOTE | 2023-11-17 05:33 | W.PN.CT ---
Today's Communication / Plan
-
-pod #3
-felt and looked better after getting [address] CT and Cordis out
-pt walked to the bathroom and went into a-fib with RVR 150s-170s on at ~mdnt - gave 5 and 2.5 mg iv Lopressor, Amio bolus x2 and drip (new iv line placed)
-gave extra 12.5 mg po Lopressor last night (total 37.5 mg), increased BB to 37.5 bid
-L CT output: 25/140 in 12/24 hrs
-continue ASA, Plavix, Lipitor, Lopressor, Amio
-encourage IS, OOB
Assessment / Plan
-
- mv-CAD - s/p Cabg x3 (SAMANIEGO-LAD, free Kelsie 'off Samaniego' to OM, Ao-SVG-PDA); R EVH; LAAE with #[address] Salinas on 11/14/23, pod #3
- intraop CHHAYA: EF�45-50%; no new wma; small PFO w/left to right shunt; Stage I diastolic dysfunction, tr MR; no clot in LUCA, completely occluded post clip
- Ptotamine allergic reaction with bronchospasm and hypotension
- HTN
- HLD
- class 1 obesity (BMI 33)
- Diabetes (new dx, HgA1c 6.5)
- b/l PAD- follows with Dr. Whiting
- COPD
- Smoking [id number] yrs-stopped 1 mos ago
- EtOH (beer 5 times/week)-stopped 1 mos ago
- Anxiety
- Acute postop atelectasis
- Acute postop hypovolemia with subsequent hypervolemia
- Acute postop paroxysmal a-fib with RVR 150s-170s on mdnt - gave 5 and 2.5 mg iv Lopressor, Amio bolus and drip (new iv line placed)
� � � � � � � � � �
Discussed patient care with: Nursing and Care Team
Subjective
Procedure
- s/p Cabg x3 (SAMANIEGO-LAD, free Kelsie 'off Samaniego' to OM, Ao-SVG-PDA); R EVH; LAAE with #[address] Salinas on 11/14/23
-
Date of Service: November 17, 2023
Objective Data
-
Lab Results
11/17/23 00:27
11/17/23 00:27
PT 16.1 Sec (11.4-14.6) H 11/14/23 14:18
INR 1.28 11/14/23 14:18
APTT 32.3 Sec (23.4-35.0) 11/14/23 14:18
Vital Signs
Vital Signs
Temp Pulse Resp BP Pulse Ox
97.7 F 119 16 101/72 95
11/16/23 20:00 11/17/23 01:00 11/17/23 00:00 11/17/23 00:45 11/17/23 00:00
CT Intake/Output/Weight
11/16/23 11/16/23 11/17/23
06:59 18:59 06:59
Intake Total 257.8 / 1608.1 542.9 / 542.9
Output Total 755 / 1340 635 / 1010 375 / 1010
Balance -497.2 / 268.1 -92.1 / -467.1 -375 / -467.1
SaO2: 95
Physical Exam
-
General: Awake and AOx3
Cardiovascular: irregular rate & rhythm, No Murmurs and No Rub
Respiratory: Rales (at bases b/l. No wheeze) and Decreased Breath Sounds
Sternum: Stable
Incision: Clean, Dry and Dressing Intact
Extremities: No Edema b/l
Data Reviewed
-
Lab Results: Results Reviewed
Medications: Active Meds Reviewed
Chest X-Ray: Report Reviewed and Image Reviewed
ECG: Report Reviewed and Image Reviewed
[2023-11-17] MEDS: NOVOLOG FLEXPEN SC ×3 (07:11→17:28)
--- NOTE | 2023-11-17 07:34 | PN.DE.MGMTRT ---
Insulin Management
- -
11/15/2023 Diabetes Management Consult
Patient s/p CABG x 3 POD 1. PMH: HCL, HTN, COPD, current smoker, obesity, PAD, pre diabetes. Prior to admission was taking no medication for pre diabetes. On admission A1C 6.5%, new diagnosis of diabetes. Patient is currently receiving glycemic
protocol IV insulin , .6 to 2.3 units per hour, glucose range 92 to 144. Will continue glycemic protocol IV insulin today and assess for readiness to transition tomorrow.
11/16/2023 Diabetes Management Follow up
POD 2 s/p CABG x 3. Doing well. Glucose remained stable, 97 to 130, on glycemic protocol overnight, requiring .8 to to 2.6 units of insulin per hour. Will start Farxiga 10 mg daily, first dose now and metformin 500 mg BID first dose now. Will
continue glycemic protocol until after lunch.
Will provide and instruct on glucose monitor today.
11/17/2023: Diabetes Management F/U:
Pt is s/p CABG x 3 POD #3, doing well. Was transitioned off glycemic protocol yesterday after lunch. Glucose has remained stable and in range 91 to 120.
Will cont current regimen: Farxiga 10mg daily and Metformin 500mg BID.
Pt was provided glucose monitor with instructions yesterday.
Diabetes History
- -
Type of Diabetes: 2
Pre-Admission Diabetes Regimen
11/17/23
00:27
Creatinine 0.6 L
Lab Results
Hemoglobin A1c 6.5 % (4.0-5.6) H 11/07/23 08:45
Insulin Pump Settings
IP Diabetes Regimen
11/16/23 11/16/23 11/16/23
08:56 10:25 11:03
Glucose
POC Glucose 100 H 96 91
11/16/23 11/16/23 11/16/23
12:05 13:18 14:21
Glucose
POC Glucose 108 H 107 H 120 H
11/16/23 11/16/23 11/17/23
17:35 21:26 00:27
Glucose 112 H
POC Glucose 110 H 114 H
Meal type: Breakfast
Patient Education
[2023-11-17] MEDS: PACERONE 200 MG PO ×3 (07:57→20:39)
[2023-11-17] MEDS: FOLVITE 1 MG PO (07:57)
[2023-11-17] MEDS: SENOKOT-S 1 TABLET PO ×2 (07:57→20:39)
[2023-11-17] MEDS: MAGNESIUM OXIDE 500 MG PO ×2 (07:57→20:39)
[2023-11-17] MEDS: GLUCOPHAGE 500 MG PO ×2 (07:57→17:26)
[2023-11-17] MEDS: PLAVIX 75 MG PO (07:57)
[2023-11-17] MEDS: LOW STRENGTH ASPIRIN 81 MG PO (07:57)
[2023-11-17] MEDS: MUCINEX 600 MG PO ×2 (07:57→20:40)
[2023-11-17] MEDS: LOPRESSOR 37.5 MG PO ×2 (07:57→20:38)
[2023-11-17] MEDS: FARXIGA 10 MG PO (07:57)
[2023-11-17] MEDS: PROTONIX 40 MG PO (07:57)
[2023-11-17] MEDS: ROXICODONE 5 MG PO ×2 (07:58→15:18)
[2023-11-17] MEDS: LIDOCAINE 4% PATCH 1 PATCH TOPICAL (07:58)
[2023-11-17] MEDS: BACTROBAN 2% OINTMENT 1 APPLIC NASAL ×2 (07:58→20:40)
--- NOTE | 2023-11-17 08:00 | PTCARENOTE ---
pt received from previous RN, oriented, OOB in chair. pt A-fib on the monitor, HR 100s. Amiodarone gtt running as ordered. pt converted to SR @0730, HR 80s. 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 V wire set to VVI 30/10. SBP 100s. pt on RA 93% POX. lungs diminished in bases, IS
encouraged. CT x1 to bulb. pt abdomen s/n. +BS, +flatus. tolerating diet. voids. sternal aquacel intact, chest tube dressing intact. R groin c/d/i. R knee aquacel intact. PIV x2. see worklist for VS, I&O, and assessment.
--- NOTE | 2023-11-17 09:34 | W.PN.CD ---
Today's Communication / Plan
-
amio and cont post op care
OOB and walking
Impression / Plan
-
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
Impression/Plan:
CAD s/p CABG x 3 SAMANIEGO-LAD; LEANDRO-OM3; SVG-PDA; LUCA exclusion #40mm clip on 11/14/[address] Salinas
-CHHAYA with preserved EF pre and post, no new WMA
- on aspirin and plavix, if AF continues to persist will need to discuss AC
- HR now better controlled
AF RVR overnight on now in SR
- on amio continue metoprolol
- if AF continues will need to discuss Eliquis
HTN
- metoprolol 37.5 mg bid
PFO, small, left to right shunt
COPD
Type II DM, Hgba1c 6.5% SGLT2i added
Frequent ETOH consumption, no withdraw symptoms
HLD, goal LDL < 70, continue atorvastatin
PAD, follows with Dr. Whiting
Former tobacco abuse, 2 PPD for the last five years, quit 10/20/23
Subjective:
AF overnight, however, converted to SR now; overall, feeling much improved
Physical Exam
Vital Signs/Labs
Vital Signs
Temp Pulse Resp BP Pulse Ox
97.8 F 75 18 101/53 93
11/17/23 04:44 11/17/23 09:00 11/17/23 07:49 11/17/23 07:57 11/17/23 07:49
11/16/23 11/17/23 11/18/23
06:59 06:59 06:59
Actual Weight 209 lb 14.081 oz 209 lb 10.554 oz
11/17/23 00:27
03/01/24 00:27
PT 16.1 Sec (11.4-14.6) H 11/14/23 14:18
INR 1.28 11/14/23 14:18
APTT 32.3 Sec (23.4-35.0) 11/14/23 14:18
Magnesium 2.2 mg/dl (1.6-2.3) 11/15/23 03:13
Physical Exam
Constitutional: No acute distress
EENT: Anicteric
Cardiovascular: Rhythm & rate is regular and Pedal edema is absent
Respiratory: Respiratory effort normal and Lungs clear to auscul.
GI: Soft
Neuro/Psych: AO x 3
Data Reviewed
-
Date of Service: November 17, 2023
EKG: Tracing Personally Visualized and interpreted
Labs: Labs Reviewed by me
[2023-11-17] MEDS: NSS IV (11:09)
[2023-11-17 12:11] LABS: Glucose - Point of Care 155 mg/dl (70-99)
--- NOTE | 2023-11-17 12:30 | PTCARENOTE ---
pt VSS, pt placed back to bed, L pleural CT dc'd. dressing c/d/i. pt ambulated in hallway w/ stand by assist. pt c/o anxiety, received PRN Ativan 0.5mg PO.
--- NOTE | 2023-11-17 14:16 | CM ---
Chart reviewed. Patient is independent of ADLS, lives with his girlfriend in a 1 S[address], 10 SUAD, 0 DME. Patient's girlfriend works full time paramedic, but will be there to help when needed. Plan is for the patient to return home with CT Transitional RN. CM
to follow
[2023-11-17] MEDS: TUMS EX (EXTRA STRENGTH) CHEWABLE 2 TABLET PO (15:17)
--- NOTE | 2023-11-17 15:50 | PTCARENOTE ---
pt VSS, pt c/o indigestion/ spitting up when eating, pt states it happens when he is at home too. 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 PRN Tums given. pt c/o pain, received PRN Roxicodone 5mg PO. voids in urinal. OOB in chair.
[2023-11-17 17:26] LABS: Glucose - Point of Care 109 mg/dl (70-99)
[2023-11-17] MEDS: MAALOX PLUS 1 TABLET PO (17:26)
[2023-11-17] MEDS: LIPITOR 40 MG PO (17:26)
--- NOTE | 2023-11-17 20:00 | PTCARENOTE ---
assumed care of patient @ 1900. received pt sitting in chair, AOX3. VSS on RA. NSR on monitor. +pulses, trace anasarca. V wire insulated lungs clear on room air, satting 95 percent. +BS and flatus, no BM yet. reports mild acid reflux occasionally,
tums offered. voiding kristian urine in urinal. Sternal aquacel CDI, CT site CDI. R hand PIV and R AC #22 with amio infusing, site looks good no pain and flushes easily. pt resting comfortably in chair, call curry within reach.
[2023-11-17] MEDS: ROXICODONE 10 MG PO (20:38)
[2023-11-17 22:18] LABS: Glucose - Point of Care 132 mg/dl (70-99)
[2023-11-18] VITALS (9 sets, daily range): BP systolic 95–124; BP diastolic 54–71; PULSE 74; O2SAT 97; BMI 33.5
--- NOTE | 2023-11-18 | PTCARENOTE ---
pt resting comfortably in recliner, no change in assessment, amio drip done
[2023-11-18] MEDS: THIAMINE INJECTION 200 MG IV (00:23)
[2023-11-18 01:16] LABS: Hematocrit 32.7 % (39.0-52.0); Hemoglobin 11.6 g/dL (13.0-18.0); Mean Corp Hgb Conc. 35.5 g/dL (33.0-37.0); Mean Corpuscular Hgb 31.2 pg (27.0-31.0); Mean Corpuscular Volume 87.9 fL (80.0-94.0); Mean Platelet Volume 10.1 fL (7.4-10.4); Platelet Count 243 10^3/uL (130-400); Red Blood Cell Count 3.72 10^6/uL (4.70-6.10); Red Cell Dist. Width 12.1 % (11.5-14.5); White Blood Cell Count 13.9 10^3/uL (4.8-10.8)
[2023-11-18 01:30] LABS: Blood Urea Nitrogen 22 mg/dl (9-20); Calcium 8.7 mg/dl (8.4-10.2); Carbon Dioxide 32 mmol/L (22-30); Chloride 98 mmol/L (98-107); Estimated Creatinine Clearance > 125 ml/min; Glucose 114 mg/dl (70-99); Potassium 3.8 mmol/L (3.5-5.1); Sodium 136 mmol/L (135-145); eGFR > 60.00
--- NOTE | 2023-11-18 04:53 | W.PN.CT ---
Today's Communication / Plan
-
-No major issues overnight. Hemodynamically and neurologically intact
-No further a-fib since ~ 8hrs on pod#2 into pod#3. Amiodarone gtt has been completed per protocol. Tolerating increase of Lopressor to 37.5 mg po BID
-DOAC if further a-fib per Cards
-Cont. current meds (ASA, Plavix, Amiodarone, Lopressor, Lipitor, Farxiga, MFM)
-F/U 2-view CXR
-Encourage use of IS
-Smoking cessation encouraged
-OOB into chair/Ambulate
-D/C temporary v-wires
-D/C home
Assessment / Plan
-
- mv-CAD - s/p Cabg x3 (SAMANIEGO-LAD, free Kelsie 'off Samaniego' to OM, Ao-SVG-PDA); R EVH; LAAE with #[address] Salinas on 11/14/23, pod #4
- intraop CHHAYA: EF�45-50%; no new wma; small PFO w/left to right shunt; Stage I diastolic dysfunction, tr MR; no clot in LUCA, completely occluded post clip
- Ptotamine allergic reaction with bronchospasm and hypotension
- HTN
- HLD
- class 1 obesity (BMI 33)
- Diabetes (new dx, HgA1c 6.5)
- b/l PAD- follows with Dr. Whiting
- COPD
- Smoking [id number] yrs-stopped 1 mos ago
- EtOH (beer 5 times/week)-stopped 1 mos ago
- Anxiety
- Acute postop atelectasis
- Acute postop hypovolemia with subsequent hypervolemia
- Acute postop paroxysmal a-fib with RVR 150s-170s on mdnt - gave 5 and 2.5 mg iv Lopressor, Amio bolus and drip (new iv line placed)
- Acute postop blood loss/anemia (stable without transfusion)
- Acute postop hyponatremia, 132 (resolved)
� � � � � � � � � �
Discussed patient care with: Cardiology, Nursing, Respiratory Therapy, Pharmacy and Care Team
Subjective
Procedure
- s/p Cabg x3 (SAMANIEGO-LAD, free Kelsie 'off Samaniego' to OM, Ao-SVG-PDA); R EVH; LAAE with #[address] Salinas on 11/14/23
-
Date of Service: November 18, 2023
Pt c/o mild incisional pain, otherwise feels well. Ambulating hallway without difficulty
Objective Data
-
Lab Results
11/18/23 01:00
11/18/23 01:00
PT 16.1 Sec (11.4-14.6) H 11/14/23 14:18
INR 1.28 11/14/23 14:18
APTT 32.3 Sec (23.4-35.0) 11/14/23 14:18
Vital Signs
Vital Signs
Temp Pulse Resp BP Pulse Ox
98.2 F 80 16 115/54 96
11/18/23 00:00 11/18/23 04:00 11/18/23 00:00 11/18/23 00:06 11/18/23 00:00
CT Intake/Output/Weight
11/17/23 11/17/23 11/18/23
06:59 18:59 06:59
Intake Total 480 / 1022.9 133.3 / 233.5 100.2 / 233.5
Output Total 580 / 1215 965 / 1615 650 / 1615
Balance -100 / -192.1 -831.7 / -1381.5 -549.8 / -1381.5
SaO2: 96
[2023-11-18] MEDS: TORADOL 15 MG IV (05:10)
[2023-11-18] MEDS: KCL ELIXIR 40 MEQ PO (05:24)
[2023-11-18] MEDS: ROXICODONE 5 MG PO (06:40)
[2023-11-18 07:51] LABS: Glucose - Point of Care 131 mg/dl (70-99)
[2023-11-18] MEDS: PACERONE 200 MG PO (08:59)
--- NOTE | 2023-11-18 09:00 | PTCARENOTE ---
Patient care assumed from nightshift RN. Patients denies significant pain, and is fully alert and oriented. OOB to chair, ambulates independently without complication. Pt on room air, saturation 95%. Lungs are diminished in bilateral bases, mild
shortness of breath with exertion. NSR with rate 80-90. Pulses palpable bilaterally in upper and lower extremities. Trace to +1 edema present. V-wire insulated. Voiding without complication. Bowel sounds present. Surgical dressings clean, dry,
intact. PIVs patent.
[2023-11-18] MEDS: VITAMIN B1 100 MG PO (09:01)
[2023-11-18] MEDS: FOLVITE 1 MG PO (09:02)
[2023-11-18] MEDS: LOW STRENGTH ASPIRIN 81 MG PO (09:02)
[2023-11-18] MEDS: SENOKOT-S 1 TABLET PO (09:02)
[2023-11-18] MEDS: MUCINEX 600 MG PO (09:02)
[2023-11-18] MEDS: PLAVIX 75 MG PO (09:02)
[2023-11-18] MEDS: PROTONIX 40 MG PO (09:02)
[2023-11-18] MEDS: LIDOCAINE 4% PATCH 1 PATCH TOPICAL (09:04)
[2023-11-18] MEDS: BACTROBAN 2% OINTMENT 1 APPLIC NASAL (09:08)
[2023-11-18] MEDS: FARXIGA 10 MG PO (09:10)
[2023-11-18] MEDS: GLUCOPHAGE 500 MG PO (09:10)
[2023-11-18] MEDS: LOPRESSOR 37.5 MG PO (09:10)
[2023-11-18] MEDS: MAGNESIUM OXIDE 500 MG PO (09:11)
[2023-11-18] MEDS: NSS IV (09:20)
--- NOTE | 2023-11-18 10:09 | W.PN.CD ---
Today's Communication / Plan
-
continue medications, he is in SR and HR and BP are controlled
Impression / Plan
-
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
Impression/Plan:
CAD s/p CABG x 3 SAMANIEGO-LAD; LEANDRO-OM3; SVG-PDA; LUCA exclusion #40mm clip on 11/14/[address] Salinas
-CHHAYA with preserved EF pre and post, no new WMA
- on aspirin and plavix, if AF continues to persist will need to discuss AC
- HR now better controlled
AF RVR overnight on now in SR
- on amio continue metoprolol
- if AF continues will need to discuss Eliquis
HTN
- metoprolol 37.5 mg bid
PFO, small, left to right shunt
COPD
Type II DM, Hgba1c 6.5% SGLT2i added
Frequent ETOH consumption, no withdraw symptoms
HLD, goal LDL < 70, continue atorvastatin
PAD, follows with Dr. Whiting
Former tobacco abuse, 2 PPD for the last five years, quit 10/20/23
Subjective:
SR last 24 hrs, otherwise feeling better complains of food getting stuck in throat occasionally
Physical Exam
Vital Signs/Labs
Vital Signs
Temp Pulse Resp BP Pulse Ox
98.5 F 87 16 113/66 95
11/18/23 08:00 11/18/23 09:10 11/18/23 08:00 11/18/23 09:10 11/18/23 08:00
11/17/23 11/18/23 11/19/23
06:59 06:59 06:59
Actual Weight 209 lb 10.554 oz 207 lb 10.807 oz
11/18/23 01:00
11/18/23 01:00
PT 16.1 Sec (11.4-14.6) H 11/14/23 14:18
INR 1.28 11/14/23 14:18
APTT 32.3 Sec (23.4-35.0) 11/14/23 14:18
Magnesium 2.2 mg/dl (1.6-2.3) 11/15/23 03:13
Physical Exam
Constitutional: No acute distress
EENT: Anicteric
Cardiovascular: Rhythm & rate is regular
Respiratory: Respiratory effort normal and Lungs clear to auscul.
GI: Soft
Neuro/Psych: AO x 3
Data Reviewed
-
Date of Service: November 18, 2023
EKG: Tracing Personally Visualized and interpreted
Labs: Labs Reviewed by me
[2023-11-18] MEDS: NOVOLOG FLEXPEN SC ×2 (10:17→11:40)
[2023-11-18 11:39] LABS: Glucose - Point of Care 96 mg/dl (70-99)
[2023-11-18] MEDS: ULTRAM 25 MG PO (12:46)
--- NOTE | 2023-11-18 13:23 | PTCARENOTE ---
Patient preparing for discharge. PIVs intact. V-wire cut. Sternal dressing removed. Patient showering. Vital signs remain stable. Assessment unchanged.
--- NOTE | 2023-11-18 14:02 | W.[place]-PDMP ---
[place]-PD[place]
-
Checked the [place]- Pres[place] Drug Monitoring Program website, no red flags identified; safe to proceed with prescription.
--- NOTE | 2023-11-18 14:20 | W.DCSUMMARY ---
Discharge Summary
Discharge Data
Date of Admission: 11/14/23
Date of Discharge: 11/18/23
-
Pending Results: No
Hospital Course
Primary care physician: Pooja Corbin
Outpatient rig site engineer: Fredrick Duron
Inpatient consultants: [facility]
Procedures:
1. 11/14 Coronary artery bypass grafting x3, left atrial appendage exclusion with 40mm Atriclip by Dr. Salinas
Primary Diagnosis:
1. multivessel coronary artery disease
Secondary Diagnoses:
1. Hypertension
2. Hyperlipidemia
3. Class I obesity
4. New diagnosis of diabetes mellitus with A1c of 6.5
5. bilateral lower extremity peripheral arterial disease
6. Chronic obstructive pulmonary disease
7. Former tobacco abuse, 96-[id number]-qlfh history quit 1 month ago
8. Anxiety
9. Perioperative protamine reaction with refractory hypotension and bronchospasm treated with epinephrine
10. Postoperative atelectasis, resolved
11. Postoperative atrial fibrillation with rapid ventricular rates x 8 hours on postop day 3
12. postoperative acute blood loss anemia
13. Postoperative hyponatremia, resolved
HPI: Patient is a 62-year-old male who was undergoing evaluation for lower extremity bypass, cardiac clearance revealed positive stress test and eventually multivessel coronary artery disease. Patient was referred to undergo coronary bypass prior
to his vascular surgery.
Hospital course: He was brought in electively on 11/14 where he underwent CABG x 3 with SAMANIEGO to LAD, free LEANDRO to OM 3 off the SAMANIEGO, saphenous vein graft to PDA and ELAA with [address] Salinas. Perioperatively patient had a ?allergic
reaction to protamine infusion with refractory hypotension and bronchospasm requiring epinephrine push. Pt recovered from this event and was transferred to CVICU per protocol postop. He extubated that evening around 17:45 without incident
neurologically intact.
On postop day #1 NSR, no vasoactive drips. Mediastinal drain removed, pleural drains bulbed. Delined, maintained on insulin infusion for new dx DM.
Postop day #2 ambulating, transitioned to metformin & farxiga. transferred to telemetry phase.
On postop day #3 he went into atrial fibrillation with RVR x 8 hours. Amio bolus & infusion protocol completed. Beta bela titrated up. remained sinus rhythm. remaining chest tubes removed.
On postop day #4 he remains sinus rhythm, VSS. Tolerating increased BB. ambulating, temporary pacing wire cut at the level of the skin. 2V CXR no sig abnormalities, trace b/l effusion. Discharged to home in the care of his family with transitional
care nurse follow up this week.
Home medication changes:
New Rx amio/metoprolol for postop afib with RVR. zocor changed to lipitor due to interaction with amiodarone. new rx metformin and farxiga for NIDDM. ASA/plavix for CAD/CABG grafts. Lorazepam given for situational anxiety #10 tabs, pt aware we will
not refill. Tramadol rx for post surgical pain as needed. Pt instructed to stop coreg, lisinopril, diltiazem and zocor at this time.
Discharge Plan
-
Patient Disposition: Home (Routine Discharge)
Discharge Diagnosis/Procedures: coronary artery bypass grafting
Condition: Good
Diet: Low Cholesterol and Low Sodium
Activity: No strenuous activity
Driving Restrictions: Not until seen by your Dr
Bathing Restrictions: OK to Shower
Other Services: Cardiac Rehab
Specialty Instructions: Weigh Daily- Call MD for wt gain/loss 3 lbs overnight/5 lbs in 1 week
Activity Restrictions/Additional Instructions:
ACTIVITY:
-No strenuous activity: no heavy lifting, pushing, pulling anything over 15 pounds for one month
-continue to use stairs as tolerated
DRIVING RESTRICTIONS:
-No driving for one month or until approved by your surgeon
WOUND CARE:
-Shower daily. Use soap & water.
-No lotions, creams or powders on incision area.
DIET:
-continue a low fat/low cholesterol diet.
-IF you are diabetic, continue carb controlled diet.
CARDIAC REHAB:
-Please make appointment to start in 5-6 weeks with your local hospital program. (See Cardiac Rehabilitation Discharge Booklet).
SPECIALTY INSTRUCTIONS:
-Weigh yourself daily. Call your physician for any weight gain/loss of 3 lbs overnight or 5 lbs in one week.
-REPORT any clicking noise or uneven appearance of your sternum to your surgeon immediately.
-If you smoke, you are instructed to quit. The [place] smoking hotline phone number is [phone]
Referrals:
CT Transitional Care Nurse [Outside] (The Cardiothoracic Transitional Care Nurse will call you to set up a visit in 1-2 days.)
[facility] [Outside] - 12/20/23 2:00 pm
(Cardiac Rehab Orientation appointment and� First Exercise appointment is on 12/20/23 at 2 pm.
The Cardiac Rehab gym is located on the first floor of the [facility]ovascular [facility].)
Lilian Guillen NP [Specified Professional Personl] - 12/26/23 11:00 am
Miguel Salinas MD [Active] - 12/11/23 9:30 am
Pooja Corbin MD [Family Provider] -
Prescriptions:
New
metformin 500 mg Tablet
500 mg PO BID@0800,1700 Qty: 60 0RF
(DME) Contour Next Test Strips Strip
Qty: 200 0RF
Rx Instructions:
Test 2 times per day in pattern provided As Directed
E11.9
(DME) lancets [Color Lancets] 21 gauge Misc
Qty: 200 0RF
Rx Instructions:
Test 2 times per day in pattern provided As Directed
E11.9
dapagliflozin propanediol [Farxiga] 10 mg Tablet
10 mg PO DAILY Qty: 30 0RF
atorvastatin 40 mg Tablet
40 mg PO QPM Qty: 30 1RF
amiodarone [Pacerone] 200 mg Tablet
200 mg PO BID Qty: 90 0RF
Rx Instructions:
Take TWICE DAILY x 2 weeks (until 12/01), then once daily until otherwise instructed by your rig site engineer
clopidogrel 75 mg Tablet
75 mg PO DAILY Qty: 30 1RF
acetaminophen 325 mg Tablet
650 mg PO Q6HPRN PRN (Reason: mild pain,headache,temp >101F ) Qty: 0 0RF
sennosides-docusate sodium [Stool Softener-Stimulant Laxat] 8.6-50 mg Tablet
1 tab PO Q12 PRN (Reason: Constipation) Qty: 0 0RF
lorazepam 0.5 mg Tablet
0.5 mg PO BIDPRN PRN (Reason: anxiety) Qty: 10 0RF
metoprolol tartrate [Lopressor] 50 mg tablet
50 mg PO BID Qty: 60 1RF
pantoprazole 40 mg Tablet,Delayed Release (Dr/Ec)
40 mg PO DAILY Qty: 30 1RF
tramadol 50 mg tablet
25 - 50 mg PO Q6H PRN (Reason: moderate to severe pain) Qty: 28 0RF
Continued
Trelegy Ellipta 200-62.5-25 mcg Blister With Device
1 inh INHALATION DAILY
aspirin 81 MG tablet,delayed release (DR/EC)
81 mg PO DAILY
Discontinued
lisinopril 20 mg Tablet
20 mg PO DAILY
simvastatin 80 mg Tablet
80 mg PO DAILY
carvedilol 6.25 mg Tablet
6.25 mg PO Daily
nitroglycerin [nitroglycerin] 0.4 mg tablet, sublingual
0.4 mg sublingual [id number] PRN (Reason: chest pain) Qty: 25 5RF
Patient Comments:
Never taken
diltiazem HCl
240 mg PO DAILY
Discharge Orders:
Discharge Patient (As Directed); Ordered 11/18/23
Ordered By: June Bowling
Care Plan Goals
Care Plan Goals:
Problem: Readiness for enhanced knowledge related to diagnosis and treatment plan
Goal: Understand your diagnosis and treatment plan needs, including medications if applicable.
Instructions: Know your diagnosis, underlying causes and treatment plan options, including medications if applicable. Consult with your health care team to learn about your diagnosis and treatment plan, including medications if applicable.
Discharge Date and Time
Discharge Date/Time: 11/18/23 15:15
--- NOTE | 2023-11-18 15:21 | PTCARENOTE ---
Patient showered. PIV x2 removed. Brought to personal vehicle on wheelchair by RN. Discharge instructions thoroughly reviewed.
== END 2023-11-18 15:15 | disposition home or self-care (01) | DRG 236 ==
LOC: CVICU 05:35
PROVIDERS: Nurse Practitioner; ADMITTING PHYSICIAN Thoracic Surgery (Cardiothoracic Vascular Surgery); FAMILY PHYSICIAN Family Medicine; OTHER PHYSICIAN Internal Medicine Critical Care Medicine
PROC: 02L70CK Occlusion of Left Atrial Appendage with Extraluminal Device, Open Approach (ICD-10-PCS; 2023-11-15)
PROC: 0210093 Bypass Coronary Artery, One Artery from Coronary Artery with Autologous Venous Tissue, Open Approach (ICD-10-PCS; 2023-11-15)
PROC: 06BP4ZZ Excision of Right Saphenous Vein, Percutaneous Endoscopic Approach (ICD-10-PCS; 2023-11-15)
PROC: 02100Z9 Bypass Coronary Artery, One Artery from Left Internal Mammary, Open Approach (ICD-10-PCS; 2023-11-15)
PROC: 5A1221Z Performance of Cardiac Output, Continuous (ICD-10-PCS; 2023-11-15)
PROC: B24BZZ4 Ultrasonography of Heart with Aorta, Transesophageal (ICD-10-PCS; 2023-11-15)
PROC: 02100A8 Bypass Coronary Artery, One Artery from Right Internal Mammary with Autologous Arterial Tissue, Open Approach (ICD-10-PCS; 2023-11-15)
DX: I25.110 Atherosclerotic heart disease of native coronary artery with unstable angina pectoris (principal); I31.39 Other pericardial effusion (noninflammatory); J98.11 Atelectasis; Q21.12 Patent foramen ovale; D62 Acute posthemorrhagic anemia; E87.1 Hypo-osmolality and hyponatremia; F17.200 Nicotine dependence, unspecified, uncomplicated; F10.90 Alcohol use, unspecified, uncomplicated; E11.51 Type 2 diabetes mellitus with diabetic peripheral angiopathy without gangrene; G47.30 Sleep apnea, unspecified; J44.9 Chronic obstructive pulmonary disease, unspecified; E78.5 Hyperlipidemia, unspecified; F41.9 Anxiety disorder, unspecified; I48.0 Paroxysmal atrial fibrillation; E87.70 Fluid overload, unspecified; E86.1 Hypovolemia; I95.2 Hypotension due to drugs; J98.01 Acute bronchospasm; R06.89 Other abnormalities of breathing; T45.7X5A Adverse effect of anticoagulant antagonists, vitamin K and other coagulants, initial encounter; Y92.239 Unspecified place in hospital as the place of occurrence of the external cause; I72.4 Aneurysm of artery of lower extremity; E66.9 Obesity, unspecified; I11.9 Hypertensive heart disease without heart failure; Z82.49 Family history of ischemic heart disease and other diseases of the circulatory system; Z80.8 Family history of malignant neoplasm of other organs or systems; Z80.3 Family history of malignant neoplasm of breast; Z79.82 Long term (current) use of aspirin; Z79.51 Long term (current) use of inhaled steroids; Z68.33 Body mass index [BMI] 33.0-33.9, adult
CPT/HCPCS: 94727; 94729; 36415; 36600; 71045; 71046; 80048; 80053; 81003; 81015; 82248; 82330; 82565; 82805; 82947; 82962; 83036; 83735; 84132; 84302; 84520; 85014; 85018; 85027; 85049; 85610; 85730; 86850; 86900; 86901; 86920; 87070; 93005; 93312; 93320; 93325; 93880; 94002; 94060; C1713; P9045

== ENCOUNTER 2023-12-22 04:20 | Inpatient (IN) | payer OTHER, SELFPAY ==
[2023-12-21 21:19] VITALS: BMI 33.8
[2023-12-21 21:23] VITALS: BP 188/115
[2023-12-21 21:51] LABS: % Basophils 0.4 % (0-2); % Eosinophils 1.6 % (0-6); % Immature Granulocytes 0.4 % (0-0.5); % Lymphocytes 12.9 % (20.5-51.1); % Monocytes 6.5 % (1.7-9.3); % Neutrophils 78.2 % (42.2-75.2); Absolute Basophils 0.1 10^3/uL (0-0.2); Absolute Eosinophils 0.3 10^3/uL (0-0.7); Absolute Immature Granulocytes 0.1 10^3/uL (0-0.05); Absolute Neutrophils 12.3 10^3/uL (1.4-6.5); Hematocrit 48.3 % (39.0-52.0); Hemoglobin 15.8 g/dL (13.0-18.0); Mean Corp Hgb Conc. 32.7 g/dL (33.0-37.0); Mean Corpuscular Hgb 29.4 pg (27.0-31.0); Mean Corpuscular Volume 89.9 fL (80.0-94.0); Mean Platelet Volume 9.5 fL (7.4-10.4); Nucleated Red Blood Cells % 0 % (-); Platelet Count 336 10^3/uL (130-400); Red Blood Cell Count 5.37 10^6/uL (4.70-6.10); Red Cell Dist. Width 12.8 % (11.5-14.5); White Blood Cell Count 15.8 10^3/uL (4.8-10.8)
[2023-12-21 21:55] LABS: Urine Albumin Negative (Neg - Trace); Urine Bilirubin Negative (Negative); Urine Character Clear (Clear); Urine Color Yellow; Urine Glucose 3+ (Negative); Urine Ketone 1+ (Negative); Urine Leukocyte Trace (Negative); Urine Nitrite Negative (Negative); Urine Occult Blood 1+ (Negative); Urine Urobilinogen Negative (Neg - 1+)
[2023-12-21 22:05] LABS: Urine Squamous Cell 0-2 /LPF (Few)
[2023-12-21 22:11] LABS: ALT (SGPT) 26 U/L (0-50); AST (SGOT) 24 U/L (17-59); Albumin 4.5 g/dl (3.5-5.0); Alkaline Phosphatase 150 U/L (38-126); Blood Urea Nitrogen 10 mg/dl (9-20); Calcium 9.9 mg/dl (8.4-10.2); Carbon Dioxide 22 mmol/L (22-30); Chloride 103 mmol/L (98-107); Glucose 114 mg/dl (70-99); Potassium 4.5 mmol/L (3.5-5.1); Sodium 137 mmol/L (135-145); Total Bilirubin 0.7 mg/dl (0.2-1.3); Total Protein 7.6 g/dl (6.3-8.2); eGFR > 60.00
[2023-12-21 22:21] LABS: Lipase 55 U/L (23-300)
--- NOTE | 2023-12-21 22:40 | ED.GENMED ---
History of Present Illness
General
Chief Complaint: Abdominal Symptoms
Time Seen by Provider: 12/21/23 22:40
Travel History
Have you had any contact with someone who has COVID-19?: No
Do you have any symptoms of coronavirus? Fever > 100 degrees, chills, cough, shortness of breath, sore throat, loss of taste or smell, muscle aches, or headache?: No
History of Present Illness
History of Present Illness:
HPI: Patient presents with abdominal pain without vomiting. The patient primarily has lower abdominal pain (after starting in the upper abdomen) and he felt somewhat of a firmness. He states he had a good bowel movement yesterday was more
diarrhea. He did not have a bowel movement today. He had a recent triple bypass.
EXAM:
GENERAL: Well appearing in minimal distress
HEENT: Moist oral mucosa
CARDIOVASCULAR: No murmurs, normal heart rate, regular rhythm, minimal chest wall tenderness with healing surgical wound to the anterior chest wall
PULMONARY: No respiratory distress, breath sounds are clear and equal
ABDOMEN: Soft with no peritoneal signs, mild lower abdominal tenderness right greater than left
NEUROLOGIC: Excellent strength all extremities, no coordination deficits
PSYCHIATRIC: Appropriate mental status, normal insight and judgement
EXTREMITIES: Nontender, no edema, moves all extremities equally
SKIN: No rash, no lesions
TIME OF INITIAL ENCOUNTER: 10:50 PM
NUMBER AND COMPLEXITY OF PROBLEMS ADDRESSED AT THE ENCOUNTER
� Chronic conditions affecting care: COPD, high blood pressure, hyperlipidemia, CAD
� Acute Exacerbation and/or Progression of Chronic Illness: This is an acute problem
� Differential Diagnosis includes: Bowel obstruction, appendicitis, foodborne illness, gastroenteritis, abdominal wall strain, mesenteric adenitis, epiploic appendagitis, diverticulitis
AMOUNT AND/OR COMPLEXITY OF DATA TO BE REVIEWED AND ANALYZED
� I performed an independent evaluation of and my interpretation is:
EKG:
CT: CT imaging shows appendicitis
X-rays:
Laboratory Studies: White count is 15.8 hemoglobin normal, chemistries unremarkable, 1+ blood, 1+ ketones but no clear sign of infection on urinalysis
Other:
� Review of other/old records: I reviewed records�the patient had coronary bypass just over a month ago and currently is on aspirin/Plavix
� Clinical information was obtained by an independent historian: I spoke to the girlfriend at bedside
� Prescriptions/Medications Considered but not given:
� Further testing considered but not performed:
RISK OF COMPLICATIONS AND/OR MORBIDITY OR MORTALITY OF PATIENT MANAGEMENT
� Social determinants of health affecting care: Lives at home
� Discussion with other providers: After CT report was obtained, I notified Dr. Flanagan who recommends admission to hospitalist, n.p.o., IV fluids/IV antibiotics.
� Escalation of care including admission/observation vs risk of discharge considered: White count is noted to be elevated was also found to be elevated last hospitalization. Hemoglobin is improved compared to prior. CT imaging
shows appendicitis. He was given Dilaudid earlier but then overall feels somewhat improved however pain persists. On reassessment at 1:50 AM, the patient overall appears somewhat improved�I have ordered Unasyn.
Past History
Past History
ED Past Medical History: COPD, HTN, Hypercholesterolemia and Other (PVD); Negative IDDM or NIDDM
ED Past Surgical History: None
Social History
Tobacco: Smoker (2 packs daiy)
Alcohol: Daily (Beer 4-5)
Personal: Single
Living: alone
Family History
Family History: CAD
Phy Exam
Physical Exam
Physical Exam:
See HPI
Course
Orders/Labs/Results
Orders:
Orders
12/21/23 21:36
Complete Blood Count/With Diff Urgent
Urinalysis Reflex To Culture Urgent
Date Specimen was Collected: 12/21/23
Time Specimen was Collected: 21:27
Urine Microscopic Reflex Cult Urgent
12/21/23 21:37
Comprehensive Metabolic Panel Urgent
Lipase Urgent
12/21/23 22:46
0.9% Sodium Chloride 1000 ml [Nss] 1,000 ml IV BOLUS
HYDROmorphone [Dilaudid] 1 mg IV NOW STA
Ondansetron Injectable [Zofran] 4 mg IV NOW STA
12/22/23 00:35
CT Abd/pelvis W Iv Cont Urgent
Reason For Exam: lower abd pain leukocytosis
12/22/23 01:38
HYDROmorphone [Dilaudid] 0.5 mg IV NOW STA
12/22/23 01:43
Ampicillin/Sulbactam 3 G [Unasyn] 3 gm 0.9% Sodium Chloride 100 ml [Nss] 100 ml IV NOW
12/22/23 02:24
Ampicillin/Sulbactam 3 G [Unasyn] 3 gm 0.9% Sodium Chloride 100 ml [Nss] 100 ml IV NOW
Abnormal Lab Results
12/21/23 12/21/23
21:36 21:37
WBC 15.8 H 10^3/uL
(4.8-10.8)
MCHC 32.7 L g/dL
(33.0-37.0)
Abs Immat Gran (auto) 0.1 H 10^3/uL
(0-0.05)
Absolute Neuts (auto) 12.3 H 10^3/uL
(1.4-6.5)
Absolute Monos (auto) 1.0 H 10^3/uL
(0.1-0.6)
Neutrophils % 78.2 H %
(42.2-75.2)
Lymphocytes % 12.9 L %
(20.5-51.1)
Creatinine 0.5 L mg/dL
(0.7-1.3)
Glucose 114 H mg/dl
(70-99)
Alkaline Phosphatase 150 H U/L
(38-126)
Urine Ketones 1+ A
(Negative)
Ur Occult Blood Reflex 1+ A
(Negative)
Leukocyte Esterase Rfl Trace A
(Negative)
Urine RBC 7-10 A /HPF
(0-2)
Urine Glucose 3+ A
(Negative)
12/21/23 21:36
12/21/23 21:37
Vital Signs
Initial and Last Documented VS:
Initial Vital Signs
Temp Pulse Resp BP Pulse Ox
99.0 F 95 17 188/115 96
12/21/23 21:23 12/21/23 21:23 12/21/23 21:23 12/21/23 21:23 12/21/23 21:23
Last Documented Vital Signs
Temp Pulse Resp BP Pulse Ox
99.0 F 100 20 146/75 96
12/21/23 21:23 12/22/23 00:15 12/22/23 00:15 12/22/23 00:00 12/21/23 21:23
*Critical Care Note
Total Time (30-74mins, 75-104mins- exclusive of procedures): Not Applicable
ED Attending Note
-
Portions of this chart may have been created with voice recognition software.� Occasional wrong word or��sound alike� substitutions may have occurred due to the inherent limitations of voice recognition software.
Discharge Plan
Departure
Patient Disposition: Admit
Date of Disposition: 12/22/23
Time of Disposition: 01:44
Presentation/result/management discussed w/ accepting MD/DO: Hospitalist
Discharge Problem:
Acute appendicitis
Prescriptions:
No Action
Trelegy Ellipta 200-62.5-25 mcg Blister With Device
1 inh INHALATION DAILY
aspirin 81 MG tablet,delayed release (DR/EC)
81 mg PO DAILY
metformin 500 mg Tablet
500 mg PO BID@0800,1700 Qty: 60 0RF
(DME) Contour Next Test Strips Strip
Qty: 200 0RF
Rx Instructions:
Test 2 times per day in pattern provided As Directed
E11.9
(DME) lancets [Color Lancets] 21 gauge Misc
Qty: 200 0RF
Rx Instructions:
Test 2 times per day in pattern provided As Directed
E11.9
dapagliflozin propanediol [Farxiga] 10 mg Tablet
10 mg PO DAILY Qty: 30 0RF
atorvastatin 40 mg Tablet
40 mg PO QPM Qty: 30 1RF
amiodarone [Pacerone] 200 mg Tablet
200 mg PO BID Qty: 90 0RF
Rx Instructions:
Take TWICE DAILY x 2 weeks (until 12/01), then once daily until otherwise instructed by your adjunct latin professor
clopidogrel 75 mg Tablet
75 mg PO DAILY Qty: 30 1RF
acetaminophen 325 mg Tablet
650 mg PO Q6HPRN PRN (Reason: mild pain,headache,temp >101F ) Qty: 0 0RF
sennosides-docusate sodium [Stool Softener-Stimulant Laxat] 8.6-50 mg Tablet
1 tab PO Q12 PRN (Reason: Constipation) Qty: 0 0RF
lorazepam 0.5 mg Tablet
0.5 mg PO BIDPRN PRN (Reason: anxiety) Qty: 10 0RF
metoprolol tartrate [Lopressor] 50 mg tablet
50 mg PO BID Qty: 60 1RF
pantoprazole 40 mg Tablet,Delayed Release (Dr/Ec)
40 mg PO DAILY Qty: 30 1RF
tramadol 50 mg tablet
25 - 50 mg PO Q6H PRN (Reason: moderate to severe pain) Qty: 28 0RF
Referrals:
Pooja Corbin MD [Family Provider] -
Interventions
Interventions:
*Risk Screen - Suicide Last Done: 12/21/23 21:23
*General Assessment Last Done: 12/21/23 21:23
ED- Fall Risk Assessment Last Done: 12/22/23 00:52
*ED COVID-19 Vaccine History Last Done: 12/21/23 21:23
LB-Zonfxv-Rudjmmbkfc Assessment Last Done: 12/22/23 00:52
Discharge Date and Time
Print Language: IRANIAN
[2023-12-21] MEDS: DILAUDID 1 MG IV (23:27)
[2023-12-21] MEDS: ZOFRAN 4 MG IV (23:28)
[2023-12-21] MEDS: NSS 1000 IV (23:30)
[2023-12-21 23:35] VITALS: BP 131/71
[2023-12-22] VITALS (8 sets, daily range): BP systolic 120–148; BP diastolic 64–80; BMI 30.8; BMI 31.0
[2023-12-22] MEDS: DILAUDID 0.5 MG IV ×4 (02:03→17:22)
[2023-12-22] MEDS: UNASYN IV (03:14)
--- NOTE | 2023-12-22 03:34 | HPS.HSE ---
Family Physician
-
Family Physician: Pooja Corbin
Chief Complaint
-
Abd Pain
History of Present Illness
Patient is a 63y M with PMH significant for ASCVD, HTN and DM-II who presents to ED complaining of abdominal pain. Patient states that he was feeling well earlier in the day today. He ate a large salad this afternoon, and - shortly thereafter -
developed abdominal discomfort. He states that the discomfort started in the upper / mid-abdomen and has since migrated towards the lower abdomen - specifically the RLQ > LLQ. He denies any N/V. No subjective fevers / chills. Patient states that
it felt as if he needed to pass gas or have a BM; however, he has been unable to do either since the onset of his pain.
He presented to the ED for further evaluation and CT here shows acute appendicitis.
Patient is s/p CABG x3 on 11/14/23. He has been doing very well s/p his surgery and went to his first Cardiac Rehab appt today.
His initial surgery was complicated by protamine reaction resulting in bronchospasm and post-op A-Fib (POD #3).
He denies any issues since discharge and notes that he has been feeling very well until today.
He does note that he has made significant changes to his diet including increased fruits / vegetables.
Medical History
Past Medical History
Past Medical History: Reports Other
Additional Past Medical History:
ASCVD (CAD, PAD)
Hypertension
DM-II
Obesity
COPD
Post-Op Atrial Fibrillation
Melanoma
Past Surgical History: Reports Other
Additional Past Surgical History:
CABG x 3 (11/14/23)
Social History
Tobacco: Former Smoker (Quit smoking just prior to his CABG. Has not smoked since. > 50 pack years total use)
Alcohol: Former (Prior alcohol use. Quit > 1 month ago just prior to surgery.)
Drug: None
Family History
Family History: Early CAD
Allergies / Home Medications
Allergies reflects when Allergies were last updated in [facility].
Home Medications with original date entered in [facility]
Allergy/Medication List:
Allergies
Allergy/AdvReac Type Severity Reaction Status Date / Time
protamine Allergy See Verified 11/14/23 22:07
comments
Home Medications
fluticasone fur. 200 mcg-umeclid 62.5 mcg-vilant 25 mcg inhalat.powder (Trelegy Ellipta) 1 inh inhalation DAILY Lung/Breathing Issues 10/19/23
aspirin 81 mg tablet,delayed release 81 mg PO DAILY Blood Clot Prevention/Tx 11/15/23
blood sugar diagnostic (Contour Next Test Strips) #200 ea 11/16/23
dapagliflozin propanediol 10 mg tablet (Farxiga) 10 mg PO DAILY #30 tabs 11/16/23
lancets 21 gauge (Color Lancets) #200 ea 11/16/23
metformin 500 mg tablet 500 mg PO BID@0800,1700 #60 tabs 11/16/23
acetaminophen 325 mg tablet 650 mg (2 x 325 mg) PO Q6HPRN PRN mild pain,headache,temp >101F #0 tabs 11/18/23
amiodarone 200 mg tablet (Pacerone) 200 mg PO BID #90 tabs 11/18/23
atorvastatin 40 mg tablet 40 mg PO QPM #30 tabs 11/18/23
clopidogrel 75 mg tablet 75 mg PO DAILY #30 tabs 11/18/23
lorazepam 0.5 mg tablet 0.5 mg PO BIDPRN PRN anxiety #10 tabs 11/18/23
metoprolol tartrate 50 mg tablet (Lopressor) 50 mg PO BID #60 tabs 11/18/23
pantoprazole 40 mg tablet,delayed release 40 mg PO DAILY reflux #30 tabs 11/18/23
sennosides 8.6 mg-docusate sodium 50 mg tablet (Stool Softener-Stimulant Laxative) 1 tab PO Q12 PRN Constipation #0 tabs 11/18/23
tramadol 50 mg tablet 25 - 50 mg (0.5 - 1 x 50 mg) PO Q6H PRN moderate to severe pain #28 tabs 11/18/23
Review of Systems
-
History Source: Patient
A 12 point ROS was completed and negative except as noted: Yes
Constitutional: Denies Fever or Chills
Respiratory: Denies Cough or Trouble Breathing
Cardiac: Denies Chest Pain or Palpitations
Abdomen/GI: Reports Abdominal Pain; Denies Nausea, Vomiting or Diarrhea
: Denies Dysuria or Frequency
Musculoskeletal: Denies Joint Pain or Edema
Neurological: Denies Dizzy or Headache
Psych: Denies Depression or Anxiety
Physical Exam
Vital Signs
Vital Signs
Temp Pulse Resp BP Pulse Ox
99.0 F 100 20 146/75 96
12/21/23 21:23 12/22/23 00:15 12/22/23 00:15 12/22/23 00:00 12/21/23 21:23
Physical Exam
General: Other (63y M in no acute distress.)
HEENT: Moist mucous membranes and PERRLA
Respiratory: Clear; No Wheezes, Rales or Rhonchi
Cardiac: S1/S2 and Regular Rhythm; No Murmur
GI: Other (Obese, moderately distended. Mildly tender in RLQ. No rebound / guarding. Bowel sounds are present.)
Musculoskeletal: No Clubbing, No Cyanosis and No Edema
Neuro: AO x 3
Laboratory Results
-
12/21/23 21:36
12/21/23 21:37
Laboratory Results
Total Bilirubin 0.7 mg/dl (0.2-1.3) 12/21/23 21:37
AST 24 U/L (17-59) 12/21/23 21:37
ALT 26 U/L (0-50) 12/21/23 21:37
Alkaline Phosphatase 150 U/L (38-126) H 12/21/23 21:37
Lipase 55 U/L (23-300) 12/21/23 21:37
Impression/Plan
-
A/P: Patient is a 63y M with PMH significant for ASCVD, HTN and DM-II who presents to ED complaining of abdominal pain.
Acute Appendicitis
- Admit for further evaluation and treatment.
- NPO, IV abx for now.
- Follow for clinical improvement, fever curve, changes in WBC, etc.
- Surgery evaluation in the AM.
- Will hold Plavix for now, but will hopefully improve with medical management alone.
ASCVD
- Patient with known CAD and PAD.
- Was being evaluated for claudication / PAD and had abnormal stress / cath.
- Underwent CABG x 3 on 11/14/23. Recovering well.
- Continue current CV med regimen excepting Plavix as noted above.
- Cardiology evaluation given recent surgery.
- Monitor for any chest pain, dyspnea, etc.
Post-Op A-Fib
- Currently in NSR with ectopy.
- Continue amiodarone - currently at 200mg daily.
- Monitor on tele.
- Cardio eval as noted above.
- LUCA was clipped during CABG.
DM-II
- Stable. Hold PO metformin for now.
- Follow glucose and cover with SSI as needed.
- A1C done in October was 6.5%.
COPD without Acute Exacerbation
- Stable. DuoNebs PRN.
- Patient quit smoking prior to his surgery and has remained off of cigarettes since his discharge.
Postoperative Protamine Reaction
- This is documented s/p his recent CABG.
- Reportedly had hypotension and bronchospasm which improved with Epi administration.
- Protamine documented as an allergy.
Obesity due to excess calories
- Affects all aspects of care.
- Encouraged continued efforts at healthy diet and increased activity with goal of weight loss.
DVT Prophylaxis: SCDs
Code Status: Full
[2023-12-22 06:19] LABS: Hematocrit 41.3 % (39.0-52.0); Hemoglobin 13.5 g/dL (13.0-18.0); Mean Corp Hgb Conc. 32.7 g/dL (33.0-37.0); Mean Corpuscular Hgb 29.8 pg (27.0-31.0); Mean Corpuscular Volume 91.2 fL (80.0-94.0); Mean Platelet Volume 9.7 fL (7.4-10.4); Platelet Count 286 10^3/uL (130-400); Red Blood Cell Count 4.53 10^6/uL (4.70-6.10); Red Cell Dist. Width 12.7 % (11.5-14.5); White Blood Cell Count 15.1 10^3/uL (4.8-10.8)
[2023-12-22 06:49] LABS: Blood Urea Nitrogen 9 mg/dl (9-20); Calcium 8.7 mg/dl (8.4-10.2); Carbon Dioxide 24 mmol/L (22-30); Chloride 106 mmol/L (98-107); Estimated Creatinine Clearance > 125 ml/min; Glucose 95 mg/dl (70-99); Potassium 3.9 mmol/L (3.5-5.1); Sodium 137 mmol/L (135-145); eGFR > 60.00
[2023-12-22 06:56] LABS: Glucose - Point of Care 95 mg/dl (70-99)
[2023-12-22 07:33] LABS: Hepatitis C Antibody Negative (Negative)
--- NOTE | 2023-12-22 08:15 | CON.GS ---
Addendum entered and electronically signed by Gerardo Meade MD 12/22/23 08:38:
Patient seen and examined with surgical SILK WEAVER for consultation. Agree with documented history and physical as outlined below which is consistent with my simultaneous evaluation.
HPI: 63-year-old male recently status post triple-vessel CABG at [facility] 5 to 6 weeks ago which she has recovered well from and started cardiac rehab. He woke up yesterday fasting for blood work and felt in his usual baseline state of
health. He ate a salad for lunch quickly and felt like he initially may have over ate. Developed colicky abdominal pain shortly after eating it increased in severity became bandlike in the lower abdomen with associated pressure and subsequently
localizing to the right lower quadrant. The symptoms prompted emergency department evaluation and imaging consistent with acute appendicitis. He is on Plavix which he last took yesterday.
This morning he states that he is feeling better after getting pain medication in the emergency department and floors. His last dose was 0.5 mg at 5:30 AM. No nausea. No vomiting. No fevers chills or sweats.
Medical history notable for recent CABG, postop A-fib, COPD, hypertension and NIDDM. No past abdominal surgical history
Afebrile, vital signs stable
NAD, AAOx3
ABD: Soft, obese, mild tenderness on palpation suprapubic and right lower quadrant. There is no rebound, rigidity or guarding.
CT abdomen/pelvis imaging personally reviewed as well as radiologist report. In the right lower quadrant there is a mildly dilated fluid-filled appendix with some surrounding stranding and slight reactive changes to the base of the cecum. No
radiopaque fecalith. No significant phlegmon, no free fluid, no organizing abscess, no extraluminal air to suggest perforation.
Assessment/plan: 63-year-old male presenting with acute appendicitis, uncomplicated and no radiographic evidence of obstructing fecalith. No peritonitis on examination. Vital signs stable. Leukocytosis with white blood cell count of 15.
Recent history of CABG 4 to 5 weeks ago which she has recovered well from, currently on antiplatelet therapy with Plavix and aspirin
Reviewed in detail with patient treatment options which would include attempted nonoperative management with IV antibiotics, bowel rest and supportive care versus appendectomy. We discussed various risks associated with both approaches in detail.
After discussions patient clearly wishes to avoid surgery if able to therefore initial plan is for nonoperative management assuming prompt response to treatment.
Clear liquid diet
Zosyn
IV fluid hydration
Continue to hold Plavix
Repeat CBC tomorrow a.m.
Follow abdominal examinations
Original Note:
Consultation
-
Date/Time Consultation Requested: 12/22/23 3096
Requesting Provider: Dov
Reason for Consultation: appendicitis
Medical History
-
Chief Complaint: abdominal pain
History of Present Illness:
Mr. Bronson is a 63 yo male who is s/p CABG about 5-6 weeks ago with h/o DM, HTN, COPD who presents with acute onset of abdominal pain across the abdomen yesterday after lunch. He describes his pain and sharp and cramping. The pain localized to the
right lower quadrant. He also notes sensation like he needs to pass a BM. He denies fevers or chills. He denies nausea, vomiting, diarrhea or constipation. He notes that this pain is currently starting to improve.
Past Medical History
Past Medical History: Arrhythmias (post op AFib), CAD, Cancer (melanoma), COPD, HTN and NIDDM
Past Surgical History: Cardiac (CABG on 11/14/23)
Social History
Tobacco: Former Smoker (quit 10/2023)
Alcohol: None
Family History
Family History: Reviewed & Not Pertinent and Early CAD
Allergies / Home Medications
Allergy/AdvReac Type Severity Reaction Status Date / Time
protamine Allergy See Verified 11/14/23 22:07
comments
�Medication �Instructions �Recorded �Confirmed �Type
fluticasone fur. 200 mcg-umeclid 1 inh inhalation DAILY 10/19/23 12/22/23 History
62.5 mcg-vilant 25 mcg Lung/Breathing Issues
inhalat.powder (Trelegy Ellipta)
aspirin 81 mg tablet,delayed 81 mg PO DAILY Blood Clot 11/15/23 12/22/23 History
release Prevention/Tx
blood sugar diagnostic (Contour #200 ea 11/16/23 Rx
Next Test Strips)
dapagliflozin propanediol 10 mg 10 mg PO DAILY #30 tabs 11/16/23 Rx
tablet (Farxiga)
lancets 21 gauge (Color Lancets) #200 ea 11/16/23 Rx
metformin 500 mg tablet 500 mg PO BID@0800,1700 #60 tabs 11/16/23 12/22/23 Rx
acetaminophen 325 mg tablet 650 mg (2 x 325 mg) PO Q6HPRN PRN 11/18/23 12/22/23 Rx
mild pain,headache,temp >101F #0
tabs
amiodarone 200 mg tablet (Pacerone) 200 mg PO BID #90 tabs 11/18/23 12/22/23 Rx
atorvastatin 40 mg tablet 40 mg PO QPM #30 tabs 11/18/23 12/22/23 Rx
clopidogrel 75 mg tablet 75 mg PO DAILY #30 tabs 11/18/23 12/22/23 Rx
lorazepam 0.5 mg tablet 0.5 mg PO BIDPRN PRN anxiety #10 11/18/23 12/22/23 Rx
tabs
metoprolol tartrate 50 mg tablet 50 mg PO BID #60 tabs 11/18/23 12/22/23 Rx
(Lopressor)
pantoprazole 40 mg tablet,delayed 40 mg PO DAILY reflux #30 tabs 11/18/23 12/22/23 Rx
release
sennosides 8.6 mg-docusate sodium 1 tab PO Q12 PRN Constipation #0 11/18/23 12/22/23 Rx
50 mg tablet (Stool tabs
Softener-Stimulant Laxative)
tramadol 50 mg tablet 25 - 50 mg (0.5 - 1 x 50 mg) PO 11/18/23 12/22/23 Rx
Q6H PRN moderate to severe pain
#28 tabs
Review of Systems
-
History Source: Patient
All other systems: Negative unless noted
A 10 point review of systems was completed, and was negative except as per HPI.
Physical Exam
Vital Signs
Temp Pulse Resp BP Pulse Ox
98.6 F 98 20 128/79 96
12/22/23 05:03 12/22/23 05:03 12/22/23 05:03 12/22/23 05:03 12/22/23 07:18
12/21/23 12/22/23 12/23/23
06:59 06:59 06:59
Actual Weight 91.767 kg
Body Mass Index (BMI) 30.8
Lab Results
12/22/23 05:17
12/22/23 05:17
WBC 15.1 10^3/uL (4.8-10.8) H 12/22/23 05:17
Hgb 13.5 g/dL (13.0-18.0) 12/22/23 05:17
Hct 41.3 % (39.0-52.0) 12/22/23 05:17
Plt Count 286 10^3/uL (130-400) 12/22/23 05:17
Abs Immat Gran (auto) 0.1 10^3/uL (0-0.05) H 12/21/23 21:36
Neutrophils % 78.2 % (42.2-75.2) H 12/21/23 21:36
Physical Exam
General: Well Developed and Well Nourished
HEENT: Moist Mucous Membranes
Respiratory: Non Labored Respirations
GI: Soft, Non Distended, Tender (RLQ tender, mild generalized discomfort) and Obese
Skin: Warm and Dry
Neuro: Awake, Alert and AO x 3
Data Reviewed
-
CT Scan: Image Personally Visualized and interpreted, Report Reviewed by me and Discussed with Physician
Labs: Labs Reviewed by me, Discussed with Physician and Discussed with Patient
Old Records: Reviewed
Assessment / Plan
-
Assessment:
Mr. Bronson is a 63 yo male who is s/p CABG about 5-6 weeks ago with h/o DM, HTN, COPD who presents with acute onset of abdominal pain across the abdomen yesterday after lunch. Leukocytosis present. Afebrile with stable VS. CT imaging reviewed and
consistent with acute appendicitis. Discussed surgical vs medical management options with patient. Opting to attempt nonoperative management at this time.
Plan:
Will follow on ABX for improvement at this time, tentative OR for lap appendectomy tomorrow if not improving on abx alone
Analgesics prn
Trend labs/exams
Clear liquids today
Continue to hold Plavix in case operative intervention warranted
[2023-12-22] MEDS: LOPRESSOR 50 MG PO ×2 (09:02→20:55)
[2023-12-22] MEDS: NSS (PRESERVATIVE FREE) 10 ML IV (09:03)
[2023-12-22] MEDS: ASPIR LOW (ENTERIC COATED) 81 MG PO (09:03)
[2023-12-22] MEDS: PROTONIX IV 40 MG IV (09:03)
[2023-12-22] MEDS: PACERONE 200 MG PO (09:03)
[2023-12-22] MEDS: NSS 1000 IV ×2 (09:08→19:56)
[2023-12-22] MEDS: ZOSYN 50 IV ×3 (09:08→22:50)
--- NOTE | 2023-12-22 09:28 | CON.CAR ---
Addendum entered and electronically signed by Ion Fisher MD 12/22/23 14:19:
I saw and examined the patient.
The TANDEM MILL STICKER's note was reviewed and I agree with the note.
Comment: He has at elevated risk for cardiac complication for appy that is likely 1-1.3% based on my chosen values for the ACS-NSQIP risk calculator. But his successful recent CABG should attenuate his risk and we do not need to further optimize his
med rx or perform additional preop cardiac testing. OK to hold Plavix. Once he is recovered from surgery OR responded well to a trial of ATBs and risk of surgery and bleeding is low the please resume Plavix. Followup with cardiology as planned.
Cardiology will sign off.
Original Note:
Consultation
Consultation Request
Date/Time Consultation Requested: 12/22/23 5a
Date/Time Consultation Performed: 12/22/23 9:15a
Requesting Provider: Dr. Monae
Performing Provider: LIBBY Malik for Dr. Fisher
Reason for Consultation: acute appendicitis, s/p CABG on Plavix
Medical History
-
Chief Complaint: abdominal pain
History of Present Illness:
Mr. Bronson is a 63 yo male (known to Dr. Duron) with CAD s/p CABG x 3 (SAMANIEGO to LAD, free LEANDRO 'off SAMANIEGO' to OM, AO�SVG�PDA), R EVH, LUCA E with #40 clip on 11/14/[address] Salinas, postop developed A-fib that resolved on amiodarone and Toprol,
hypertension, hypercholesterolemia, COPD, former 2 pack smoker since age 13 and quit last month, and obesity, who presents to the ER with complaints of acute right lower quadrant abdominal pain. He is admitted to the hospitalist service and imaging
revealed acute appendicitis. He was evaluated by surgery and options for treatment included surgery versus nonoperative management, the patient wishes to pursue nonoperative management and avoid surgery if possible. We are consulted for cardiac
management as he is status post CABG x 3 6 weeks ago. His Plavix is currently on hold. Currently he denies any cardiac symptoms or abdominal pain. Telemetry is stable in normal sinus rhythm without arrhythmia.
Past Medical History
Past Medical History: Other (as above)
Past Surgical History: Other (as above )
Social History
Tobacco: Former Smoker (2 ppd smoker since age 13, quit 1 month ago)
Alcohol: None
Personal:
Living: With Family
Family History
Family History: Reviewed & Not Pertinent
Allergies / Home Medications
Allergy/AdvReac Type Severity Reaction Status Date / Time
protamine Allergy See Verified 11/14/23 22:07
comments
�Medication �Instructions �Recorded �Confirmed �Type
fluticasone fur. 200 mcg-umeclid 1 inh inhalation DAILY 10/19/23 12/22/23 History
62.5 mcg-vilant 25 mcg Lung/Breathing Issues
inhalat.powder (Trelegy Ellipta)
aspirin 81 mg tablet,delayed 81 mg PO DAILY Blood Clot 11/15/23 12/22/23 History
release Prevention/Tx
blood sugar diagnostic (Contour #200 ea 11/16/23 Rx
Next Test Strips)
dapagliflozin propanediol 10 mg 10 mg PO DAILY #30 tabs 11/16/23 Rx
tablet (Farxiga)
lancets 21 gauge (Color Lancets) #200 ea 11/16/23 Rx
metformin 500 mg tablet 500 mg PO BID@0800,1700 #60 tabs 11/16/23 12/22/23 Rx
acetaminophen 325 mg tablet 650 mg (2 x 325 mg) PO Q6HPRN PRN 11/18/23 12/22/23 Rx
mild pain,headache,temp >101F #0
tabs
amiodarone 200 mg tablet (Pacerone) 200 mg PO BID #90 tabs 11/18/23 12/22/23 Rx
atorvastatin 40 mg tablet 40 mg PO QPM #30 tabs 11/18/23 12/22/23 Rx
clopidogrel 75 mg tablet 75 mg PO DAILY #30 tabs 11/18/23 12/22/23 Rx
lorazepam 0.5 mg tablet 0.5 mg PO BIDPRN PRN anxiety #10 11/18/23 12/22/23 Rx
tabs
metoprolol tartrate 50 mg tablet 50 mg PO BID #60 tabs 11/18/23 12/22/23 Rx
(Lopressor)
pantoprazole 40 mg tablet,delayed 40 mg PO DAILY reflux #30 tabs 11/18/23 12/22/23 Rx
release
sennosides 8.6 mg-docusate sodium 1 tab PO Q12 PRN Constipation #0 11/18/23 12/22/23 Rx
50 mg tablet (Stool tabs
Softener-Stimulant Laxative)
tramadol 50 mg tablet 25 - 50 mg (0.5 - 1 x 50 mg) PO 11/18/23 12/22/23 Rx
Q6H PRN moderate to severe pain
#28 tabs
Review of Systems
-
All other systems: Negative unless noted
Constitutional: No Symptoms
Physical Exam
Vital Signs
Temp Pulse Resp BP Pulse Ox
98.3 F 89 16 128/66 93
12/22/23 08:00 12/22/23 09:03 12/22/23 08:17 12/22/23 09:03 12/22/23 08:17
Lab Results
12/22/23 05:17
12/22/23 05:17
Physical Exam
General: Well Developed, Well Nourished and No Apparent Distress
HEENT: Normocephalic, Anicteric and Moist Mucous Membranes
Respiratory: Clear and Non Labored Respirations
Cardiac: S1/S2, Regular Rhythm and Other (midsternal chest incision healing)
Breast: Deferred by me
GI: Soft, Non Distended and Normal Bowel Sounds
Rectal: Deferred by Provider
Genito-urinary: No Costovertebral Tender
Musculoskeletal: No Clubbing, No Cyanosis and No Edema
Skin: Warm and Dry
Neuro: AO x 3
Hematologic/Lymphatic: No Lymphadenopathy
Psych: Calm
Impression / Plan
-
RLQ abdominal pain - acute appendicitis on imaging.
- surgery consulted.
- patient wishes to avoid surgery if able, plan for nonoperative management per surgery (IV ABX, bowel rest).
- currently denies abd pain.
- holding Plavix.
CAD - CABG x 3 11/14/23.
- stable w/o angina.
- continue medical therapy, holding Plavix for acute appendicitis.
- resume Plavix when able per surgery.
HTN - stable on meds, continue.
Data Reviewed
-
EKG: Tracing Personally Visualized and interpreted (NSR 85 bpm)
CT Scan: Report Reviewed by me (abd/pelvis - acute appendicitis)
Labs: Labs Reviewed by me
Old Records: Reviewed
--- NOTE | 2023-12-22 10:44 | W.PN.HOSP.TC ---
Today's Communication/Plan
-
apprec surgery
clears
zosyn
pain control
Assessment / Plan
Assessment / Plan
pt is a 63 year old male
Acute Appendicitis--apprec surgery input--cont zosyn--pt wishes to avoid surgery if possible--Will hold Plavix for now, but will hopefully improve with medical management alone
ASCVD - Patient with known CAD and PAD--Was being evaluated for claudication/PAD and had abnormal stress/cath - Underwent CABG x 3 on 11/14/23- Continue current CV med regimen excepting Plavix as noted above- Cardiology evaluation given recent
surgery.
Post-Op A-Fib- Currently in NSR with ectopy- Continue amiodarone - currently at 200mg daily - Monitor on tele- Cardio eval as noted above - LUCA was clipped during CABG.
DM-II- Stable. Hold PO metformin for now- Follow glucose and cover with SSI as needed- A1C done in October was 6.5%.
COPD without Acute Exacerbation- Stable. DuoNebs PRN- Patient quit smoking prior to his surgery and has remained off of cigarettes since his discharge.
Postoperative Protamine Reaction- This is documented s/p his recent CABG- Reportedly had hypotension and bronchospasm which improved with Epi administration- Protamine documented as an allergy.
Obesity due to excess calories- Affects all aspects of care- Encouraged continued efforts at healthy diet and increased activity with goal of weight loss.
DVT Prophylaxis: SCDs
Code Status: Full
Anticipated Discharge: > 48 hours
Subjective/Interval History
-
Date of Service: December 22, 2023
pt with RLQ abdominal pain--wants to avoid surgery if he can
Objective Data
-
Labs:
Laboratory Results
12/22/23
05:17
WBC 15.1 H
Hgb 13.5
Hct 41.3
Plt Count 286
Sodium 137
Potassium 3.9
Chloride 106
Carbon Dioxide 24
BUN 9
Creatinine 0.5 L
Glucose 95
Calcium 8.7
Vital Signs:
max temp for 24 hours
12/21/23
21:23
Temp 99.0 F
Vital Signs
Temp Pulse Resp BP Pulse Ox
98.3 F 89 16 128/66 93
12/22/23 08:00 12/22/23 09:03 12/22/23 08:17 12/22/23 09:03 12/22/23 10:01
Review of Systems
-
All other systems: Reviewed and negative
Abdomen/GI: Reports Abdominal Pain
Physical Exam
-
General: Well Developed, Well Nourished, No Apparent Distress and Obese
HEENT: Normocephalic and Atraumatic
Respiratory: Clear to Auscultation; Negative Wheezes or Rhonchi
Cardiac: Regular Rhythm and S1/S2; Negative Murmur
GI: Soft, Tender (RLQ) and Distended; Negative Normal Bowel Sounds (hypoactive)
Musculoskeletal: No Clubbing, No Cyanosis and No Edema
[2023-12-22 11:48] LABS: Glucose - Point of Care 126 mg/dl (70-99)
--- NOTE | 2023-12-22 12:22 | CM ---
Initial assessment completed with patient who lives with his significant other in a 1 story cabin with no basement and 12 steps to enter the home. 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 No DME or in-home services. Pharmacy is [facility] in
[place] and PCP is Dr. Pooja Corbin. Discharge Plan of Care: Anticipate home with no needs. Will continue to follow medical progression and adjust plan if needs should change.
[2023-12-22 17:17] LABS: Glucose - Point of Care 80 mg/dl (70-99)
[2023-12-22] MEDS: LIPITOR 40 MG PO (17:22)
[2023-12-22] MEDS: TYLENOL 650 MG PO (22:57)
[2023-12-23] VITALS (7 sets, daily range): BP systolic 129–165; BP diastolic 73–97; BMI 31.0
[2023-12-23 00:59] LABS: Glucose - Point of Care 80 mg/dl (70-99)
[2023-12-23] MEDS: ZOSYN 50 IV ×4 (04:13→20:50)
[2023-12-23] MEDS: DILAUDID 0.5 MG IV (04:21)
[2023-12-23 06:05] LABS: Glucose - Point of Care 92 mg/dl (70-99)
[2023-12-23] MEDS: NSS 1000 IV ×2 (06:47→16:09)
[2023-12-23 07:34] LABS: Glucose - Point of Care 95 mg/dl (70-99)
[2023-12-23] MEDS: LOPRESSOR 50 MG PO ×2 (08:42→20:50)
[2023-12-23] MEDS: PROTONIX IV 40 MG IV (08:42)
[2023-12-23] MEDS: NSS (PRESERVATIVE FREE) 10 ML IV (08:42)
[2023-12-23] MEDS: PACERONE 200 MG PO (08:43)
[2023-12-23] MEDS: ASPIR LOW (ENTERIC COATED) 81 MG PO (08:44)
--- NOTE | 2023-12-23 08:44 | W.PN.HOSP.TC ---
Today's Communication/Plan
-
await labs
hold off on pain meds if able to see what his pain is doing
Assessment / Plan
Assessment / Plan
pt is a 63 year old male
Acute Appendicitis--apprec surgery input--cont zosyn--pt wishes to avoid surgery if possible--Will hold Plavix for now, but will hopefully improve with medical management alone--pending labs this AM--told pt NOT to take pain meds before pain comes
back in order to see what is happening
ASCVD - Patient with known CAD and PAD--Was being evaluated for claudication/PAD and had abnormal stress/cath - Underwent CABG x 3 on 11/14/23- Continue current CV med regimen excepting Plavix as noted above-apprec cards--restart plavix as per
cards/surgery
Post-Op A-Fib- Currently in NSR with ectopy- Continue amiodarone - currently at 200mg daily - Monitor on tele- Cardio eval as noted above - LUCA was clipped during CABG.
DM-II- Stable. Hold PO metformin for now- Follow glucose and cover with SSI as needed- A1C done in October was 6.5%.
COPD without Acute Exacerbation- Stable. DuoNebs PRN- Patient quit smoking prior to his surgery and has remained off of cigarettes since his discharge.
Postoperative Protamine Reaction- This is documented s/p his recent CABG- Reportedly had hypotension and bronchospasm which improved with Epi administration- Protamine documented as an allergy.
Obesity due to excess calories- Affects all aspects of care- Encouraged continued efforts at healthy diet and increased activity with goal of weight loss.
DVT Prophylaxis: SCDs
Code Status: Full
Anticipated Discharge: > 48 hours
Subjective/Interval History
-
Date of Service: December 23, 2023
pt states pain better but has been taking pain meds in order to prevent the pain form coming back
Objective Data
-
Labs:
Laboratory Results
04/06/24
07:31
WBC Pending
Hgb Pending
Hct Pending
Plt Count Pending
Sodium Pending
Potassium Pending
Chloride Pending
Carbon Dioxide Pending
BUN Pending
Creatinine Pending
Glucose Pending
Calcium Pending
Vital Signs:
max temp for 24 hours
12/22/23
19:10
Temp 98.9 F
Vital Signs
Temp Pulse Resp BP Pulse Ox
97.6 F 66 16 162/79 96
12/23/23 07:05 12/23/23 07:05 12/23/23 07:05 12/23/23 07:05 12/23/23 07:05
I&O
12/22/23 12/23/23 12/24/23
06:59 06:59 06:59
Intake Total 3460 / 3460
Output Total 2 / 2
Balance 3458 / 3458
Review of Systems
-
All other systems: Reviewed and negative
Physical Exam
-
General: Well Developed, Well Nourished, No Apparent Distress and Obese
HEENT: Normocephalic and Atraumatic
Respiratory: Clear to Auscultation; Negative Wheezes or Rhonchi
Cardiac: Regular Rhythm and S1/S2; Negative Murmur
GI: Soft, Nontender (limited exam as pt sitting up), Normal Bowel Sounds and Distended
Musculoskeletal: No Clubbing, No Cyanosis and No Edema
Neuro: Awake
[2023-12-23 09:18] LABS: Hematocrit 38.8 % (39.0-52.0); Hemoglobin 12.9 g/dL (13.0-18.0); Mean Corp Hgb Conc. 33.2 g/dL (33.0-37.0); Mean Corpuscular Hgb 29.9 pg (27.0-31.0); Mean Corpuscular Volume 89.8 fL (80.0-94.0); Mean Platelet Volume 10.3 fL (7.4-10.4); Platelet Count 279 10^3/uL (130-400); Red Blood Cell Count 4.32 10^6/uL (4.70-6.10); Red Cell Dist. Width 12.6 % (11.5-14.5); White Blood Cell Count 7.4 10^3/uL (4.8-10.8)
--- NOTE | 2023-12-23 09:25 | W.PN.GS2 ---
Today's Communication / Plan
-
`
Assessment / Plan
-
Assessment: 63-year-old male presenting with acute appendicitis, uncomplicated and no radiographic evidence of obstructing fecalith.
Recent history of CABG 4 to 5 weeks ago which he has recovered well from, currently on antiplatelet therapy with Plavix and aspirin; prompting plan for nonoperative management.
AFVSS
WBC pending
Clinically improving from a subjective pain standpoint as well as tenderness on examination. No peritoneal signs.
Plan: Appears to be responding appropriately to nonoperative management of uncomplicated acute appendicitis.
Await today's CBC
Anticipate advancing to low residue diet
Continue Zosyn with plan for probable DC home tomorrow and transition to Augmentin for an additional 10-day course
Subjective Data
-
Date of Service: December 23, 2023
Patient seen and examined.
Overall he states that he is feeling better. He still has an awareness of some discomfort in the abdomen but no significant pain. Last dose of Dilaudid a little after 4 AM and he took 1 dose yesterday afternoon at 5 PM. No nausea, no vomiting,
feels as though he is hungry. Passing flatus but no bowel movement.
Objective Data
-
Intake and Output
12/22/23 12/23/23 12/24/23
06:59 06:59 06:59
Intake Total 3460 / 3460
Output Total 2 / 2
Balance 3458 / 3458
Intake:
Oral fluids 960 / 960
IV fluids (Total) 2400 / 2400
IV piggybacks 100 / 100
Output:
Urine, Voided 2 / 2
Other:
Number of approximated MODERATE 3
amounts of urine
Vital Signs
Temp Pulse Resp BP Pulse Ox
97.6 F 66 16 162/79 96
12/23/23 07:05 12/23/23 08:43 12/23/23 07:05 12/23/23 08:43 12/23/23 07:05
Calcium 8.7 mg/dl (8.4-10.2) 12/22/23 05:17
Total Bilirubin 0.7 mg/dl (0.2-1.3) 12/21/23 21:37
AST 24 U/L (17-59) 12/21/23 21:37
ALT 26 U/L (0-50) 12/21/23 21:37
Alkaline Phosphatase 150 U/L (38-126) H 12/21/23 21:37
Total Protein 7.6 g/dl (6.3-8.2) 12/21/23 21:37
Albumin 4.5 g/dl (3.5-5.0) 12/21/23 21:37
Physical Exam
-
NAD AAOx3
ABD: Soft, obese, nondistended, mild tenderness palpation right lower quadrant to suprapubic area. No rebound rigidity or guarding.
[2023-12-23 09:42] LABS: Blood Urea Nitrogen 7 mg/dl (9-20); Calcium 8.8 mg/dl (8.4-10.2); Carbon Dioxide 28 mmol/L (22-30); Chloride 104 mmol/L (98-107); Estimated Creatinine Clearance > 125 ml/min; Glucose 88 mg/dl (70-99); Potassium 4.1 mmol/L (3.5-5.1); Sodium 138 mmol/L (135-145); eGFR > 60.00
[2023-12-23 12:09] LABS: Glucose - Point of Care 118 mg/dl (70-99)
[2023-12-23 16:50] LABS: Glucose - Point of Care 86 mg/dl (70-99)
[2023-12-23] MEDS: LIPITOR 40 MG PO (17:07)
--- NOTE | 2023-12-24 00:24 | PTCARENOTE ---
22:10 pt transferred from 2N, pt aaox3,IVF infusing, offers no concerns, denies abd pain at this time, oriented 2S.
[2023-12-24] MEDS: NSS 1000 IV (01:59)
[2023-12-24 03:00] VITALS: BP 164/78
[2023-12-24] MEDS: ZOSYN 50 IV ×2 (04:00→09:48)
[2023-12-24 06:00] VITALS: BMI 30.5
[2023-12-24 06:12] LABS: Hematocrit 39.4 % (39.0-52.0); Mean Corp Hgb Conc. 35.5 g/dL (33.0-37.0); Mean Corpuscular Hgb 29.9 pg (27.0-31.0); Mean Corpuscular Volume 84.2 fL (80.0-94.0); Red Blood Cell Count 4.68 10^6/uL (4.70-6.10); Red Cell Dist. Width 12.6 % (11.5-14.5); White Blood Cell Count 6.6 10^3/uL (4.8-10.8)
[2023-12-24 06:32] LABS: Glucose - Point of Care 86 mg/dl (70-99)
[2023-12-24 06:58] LABS: Blood Urea Nitrogen 6 mg/dl (9-20); Calcium 9.4 mg/dl (8.4-10.2); Carbon Dioxide 20 mmol/L (22-30); Chloride 106 mmol/L (98-107); Estimated Creatinine Clearance > 125 ml/min; Glucose 88 mg/dl (70-99); Potassium 4.6 mmol/L (3.5-5.1); Sodium 138 mmol/L (135-145); eGFR > 60.00
[2023-12-24 07:53] LABS: Glucose - Point of Care 84 mg/dl (70-99)
[2023-12-24] MEDS: LOPRESSOR 50 MG PO (07:56)
[2023-12-24] MEDS: NSS (PRESERVATIVE FREE) 10 ML IV (07:57)
[2023-12-24] MEDS: PACERONE 200 MG PO (07:57)
[2023-12-24] MEDS: PROTONIX IV 40 MG IV (07:57)
[2023-12-24] MEDS: ASPIR LOW (ENTERIC COATED) 81 MG PO (07:58)
[2023-12-24 07:59] VITALS: BP 164/96
--- NOTE | 2023-12-24 09:59 | W.PN.HOSP.TC ---
Today's Communication/Plan
-
d/c
Assessment / Plan
Assessment / Plan
pt is a 63 year old male
Acute Appendicitis--apprec surgery input--cont zosyn--pt wishes to avoid surgery if possible--Will hold Plavix for now, but will hopefully improve with medical management alone--cleared for d/c by surgery--10 more days of Augmentin
ASCVD - Patient with known CAD and PAD--Was being evaluated for claudication/PAD and had abnormal stress/cath - Underwent CABG x 3 on 11/14/23- Continue current CV med regimen excepting Plavix as noted above-apprec cards--restart plavix as per
cards/surgery
Post-Op A-Fib- Currently in NSR with ectopy- Continue amiodarone - currently at 200mg daily - Monitor on tele- Cardio eval as noted above - LUCA was clipped during CABG.
DM-II- Stable. Hold PO metformin for now- Follow glucose and cover with SSI as needed- A1C done in October was 6.5%.
COPD without Acute Exacerbation- Stable. DuoNebs PRN- Patient quit smoking prior to his surgery and has remained off of cigarettes since his discharge.
Postoperative Protamine Reaction- This is documented s/p his recent CABG- Reportedly had hypotension and bronchospasm which improved with Epi administration- Protamine documented as an allergy.
Obesity due to excess calories- Affects all aspects of care- Encouraged continued efforts at healthy diet and increased activity with goal of weight loss.
DVT Prophylaxis: SCDs
Code Status: Full
Anticipated Discharge: Today
Subjective/Interval History
-
Date of Service: December 24, 2023
pt doing well--OK for d/c
Objective Data
-
Labs:
Laboratory Results
12/24/23
05:44
WBC 6.6
Hgb 14.0
Hct 39.4
Plt Count
Sodium 138
Potassium 4.6
Chloride 106
Carbon Dioxide 20 L
BUN 6 L
Creatinine 0.6 L
Glucose 88
Calcium 9.4
Vital Signs:
max temp for 24 hours
12/23/23
19:15
Temp 99.1 F
Vital Signs
Temp Pulse Resp BP Pulse Ox
98.0 F 68 16 164/96 97
12/24/23 07:59 12/24/23 07:59 12/24/23 07:59 12/24/23 07:59 12/24/23 07:59
I&O
12/23/23 12/24/23 12/25/23
06:59 06:59 06:59
Intake Total 3460 / 3460 1400 / 1400
Output Total 2 / 2
Balance 3458 / 3458 1400 / 1400
Review of Systems
-
All other systems: Reviewed and negative
Physical Exam
-
General: Well Developed, Well Nourished and No Apparent Distress
HEENT: Normocephalic and Atraumatic
Respiratory: Clear to Auscultation; Negative Wheezes or Rhonchi
Cardiac: Regular Rhythm and S1/S2; Negative Murmur
GI: Soft, Nontender, Nondistended and Normal Bowel Sounds
Musculoskeletal: No Clubbing, No Cyanosis and No Edema
Neuro: Awake
Psych: Calm
--- NOTE | 2023-12-24 10:24 | CM ---
CM met with pt at bedside who confirmed plan is to dc home today and has cardiac f/u appt on 12/25. Pt plans to participate in cardiac rehab outpt. All questions answered.
--- NOTE | 2023-12-24 10:49 | W.PN.GS2 ---
Addendum entered and electronically signed by Gerardo Meade MD 12/24/23 13:39:
Patient seen and examined earlier this a.m. with nurse practitioner and Dr. Ba.
Patient feeling well, tolerating diet advancement, no return of abdominal pain. No nausea vomiting. No abdominal distention. Positive flatus and bowel movements.
AFVSS
ABD: Soft, obese, very minimal tenderness palpation right lower quadrant. No rebound rigidity or guarding. No generalized tenderness.
Assessment/plan: 63-year-old male with acute uncomplicated appendicitis.
Treating medically in setting of recent triple-vessel CABG and antiplatelet therapy
Has responded well to treatment and is now medically stable for discharge
DC home on 10-day course of oral antibiotics
Outpatient surgical follow-up with myself in 3 to 4 weeks to discuss options for interval appendectomy and future colonoscopy
Original Note:
Today's Communication / Plan
-
Dispo planning
Assessment / Plan
-
Assessment: 63-year-old male presenting with acute appendicitis, uncomplicated and no radiographic evidence of obstructing fecalith.
Recent history of CABG 4 to 5 weeks ago which he has recovered well from, currently on antiplatelet therapy with Plavix and aspirin; prompting plan for nonoperative management.
AFVSS
Leukocytosis resolved
Tolerating diet
Clinically improving from a subjective pain standpoint as well as tenderness on examination. No peritoneal signs.
Plan:
Appears to be responding appropriately to nonoperative management of uncomplicated acute appendicitis.
Ok for DC home with transition to Augmentin for an additional 10-day course.
Diet as tolerated
Will plan OP follow up to discuss follow up colonoscopy and future appendectomy
Subjective Data
-
Date of Service: December 24, 2023
Patient seen and examined with Dr. Meade and hospitalist. Denies n/v. Tolerating diet. Pain continues to improve, only mild tenderness with deep palpation. No fevers/chills. Passing normal stools/flatus.
Objective Data
-
Intake and Output
12/23/23 12/24/23 12/25/23
06:59 06:59 06:59
Intake Total 3460 / 3460 1400 / 1400
Output Total 2 / 2
Balance 3458 / 3458 1400 / 1400
Intake:
Oral fluids 960 / 960 450 / 450
IV fluids (Total) 2400 / 2400 900 / 900
IV piggybacks 100 / 100 50 / 50
Output:
Urine, Voided 2 / 2
Other:
Number of approximated MODERATE 3 1
amounts of urine
Vital Signs
Temp Pulse Resp BP Pulse Ox
98.0 F 68 16 164/96 97
12/24/23 07:59 12/24/23 07:59 12/24/23 07:59 12/24/23 07:59 12/24/23 07:59
Lab Results
12/24/23 05:44
12/24/23 05:44
Calcium 9.4 mg/dl (8.4-10.2) 12/24/23 05:44
Magnesium 2.0 mg/dl (1.6-2.3) 12/24/23 05:44
Total Bilirubin 0.7 mg/dl (0.2-1.3) 12/21/23 21:37
AST 24 U/L (17-59) 12/21/23 21:37
ALT 26 U/L (0-50) 12/21/23 21:37
Alkaline Phosphatase 150 U/L (38-126) H 12/21/23 21:37
Total Protein 7.6 g/dl (6.3-8.2) 12/21/23 21:37
Albumin 4.5 g/dl (3.5-5.0) 12/21/23 21:37
Physical Exam
-
NAD AAOx3
ABD: Soft, obese, nondistended, very mild tenderness to deep palpation right lower quadrant to suprapubic area. No rebound rigidity or guarding.
--- NOTE | 2023-12-24 14:47 | W.DCSUMMARY ---
Discharge Summary
Discharge Data
Date of Admission: 12/22/23
Date of Discharge: 12/24/23
-
Pending Results: No
Hospital Course
Primary care physician : Pooja Corbin
Principal Discharge diagnosis : Acute appendicitis
Chronic Discharge diagnosis : Atherosclerotic cardiovascular disease status post recent bypass surgery, postop atrial fibrillation, type 2 diabetes mellitus, chronic obstructive pulmonary disease without acute exacerbation, postoperative protamine
reaction from bypass surgery, obesity due to excess calories
Hospital Course : Patient was a 63-year-old male who presented complaining of abdominal pain. Patient had coronary artery bypass grafting x 3 on November 14, 2023. He did well status post his surgery until the day of admission. He ate a large
salad and shortly thereafter developed abdominal discomfort. He stated the discomfort started in the mid abdomen and migrated towards the right lower abdomen specifically the right lower quadrant. He denied any nausea, vomiting, fevers, chills.
CAT scan showed acute appendicitis and the patient was admitted.
Problem #1: Acute appendicitis. Patient's white count on admission was 15.8. He was seen in consultation by surgery. Patient refused further surgical intervention and wished to treat his appendicitis medically. He was placed on IV Zosyn. White
blood cell count did improve to 6.6 on the day of discharge. He will be discharged with 10 more days of oral Augmentin and he is to follow-up in the office with Dr. Meade. Patient tolerated his diet and is stable for discharge.
Problem #2: All other medical issues. These include Atherosclerotic cardiovascular disease status post recent bypass surgery, postop atrial fibrillation, type 2 diabetes mellitus, chronic obstructive pulmonary disease without acute exacerbation,
postoperative protamine reaction from bypass surgery, obesity due to excess calories. These medical issues were stable during his hospitalization. Medications were continued as able.
Patient is stable for discharge home at this time. If there are any questions regarding this dictation or his hospital stay, please not hesitate to call. Our office number is [phone].
Important imaging findings :
CT SCAN ABDOMEN/PELVIS IMPRESSION:
1. Findings are consistent with acute appendicitis
2. There is diverticulosis but no evidence of diverticulitis
3. There is degenerative disc disease at L4/5
Discharge Plan
-
Patient Disposition: Home (Routine Discharge)
Discharge Diagnosis/Procedures: Acute appendicitis medically managed, atherosclerotic cardiovascular disease with recent bypass surgery, postoperative atrial fibrillation resolved, type 2 diabetes mellitus, chronic obstructive pulmonary disease
without exacerbation, postoperative protamine reaction from his bypass surgery, obesity due to excess calories
Condition: Good
Diet: As tolerated and Low Fat
Activity: As tolerated
Driving Restrictions: As prior to admission
Bathing Restrictions: None
Referrals:
Pooja Corbin MD [Family Provider] - in less than 1 week
Gerardo Meade MD [Active] - in one month
Prescriptions:
New
amoxicillin-pot clavulanate 875-125 mg tablet
1 tab PO Q12H Qty: 20 0RF
Continued
Trelegy Ellipta 200-62.5-25 mcg Blister With Device
1 inh INHALATION DAILY
aspirin 81 MG tablet,delayed release (DR/EC)
81 mg PO DAILY
metformin 500 mg Tablet
500 mg PO BID@0800,1700 Qty: 60 0RF
(DME) Contour Next Test Strips Strip
Qty: 200 0RF
Rx Instructions:
Test 2 times per day in pattern provided As Directed
E11.9
(DME) lancets [Color Lancets] 21 gauge Misc
Qty: 200 0RF
Rx Instructions:
Test 2 times per day in pattern provided As Directed
E11.9
dapagliflozin propanediol [Farxiga] 10 mg Tablet
10 mg PO DAILY Qty: 30 0RF
atorvastatin 40 mg Tablet
40 mg PO QPM Qty: 30 1RF
amiodarone [Pacerone] 200 mg Tablet
200 mg PO BID Qty: 90 0RF
Rx Instructions:
Take TWICE DAILY x 2 weeks (until 12/01), then once daily until otherwise instructed by your rag collector
clopidogrel 75 mg Tablet
75 mg PO DAILY Qty: 30 1RF
acetaminophen 325 mg Tablet
650 mg PO Q6HPRN PRN (Reason: mild pain,headache,temp >101F ) Qty: 0 0RF
sennosides-docusate sodium [Stool Softener-Stimulant Laxat] 8.6-50 mg Tablet
1 tab PO Q12 PRN (Reason: Constipation) Qty: 0 0RF
lorazepam 0.5 mg Tablet
0.5 mg PO BIDPRN PRN (Reason: anxiety) Qty: 10 0RF
metoprolol tartrate [Lopressor] 50 mg tablet
50 mg PO BID Qty: 60 1RF
pantoprazole 40 mg Tablet,Delayed Release (Dr/Ec)
40 mg PO DAILY Qty: 30 1RF
tramadol 50 mg tablet
25 - 50 mg PO Q6H PRN (Reason: moderate to severe pain) Qty: 28 0RF
nitroglycerin 0.4 mg tablet, sublingual
0.4 mg sublingual PRN PRN (Reason: CHEST PAIN)
Discharge Orders:
Discharge Patient (As Directed); Ordered 12/24/23
Ordered By: Sugey Ba
Discharge Date and Time
Discharge Date/Time: 12/24/23 10:51
Print Language: TURKISH
== END 2023-12-24 10:51 | disposition home or self-care (01) | DRG 395 ==
LOC: 2 SOUTH 04:20
PROVIDERS: Registered Nurse; ADMITTING PHYSICIAN Hospitalist; ATTENDING PHYSICIAN Internal Medicine; EMERGENCY PHYSICIAN Emergency Medicine; FAMILY PHYSICIAN Family Medicine; OTHER PHYSICIAN Internal Medicine Cardiovascular Disease; OTHER PHYSICIAN Surgery
DX: K35.80 Unspecified acute appendicitis (principal); J44.9 Chronic obstructive pulmonary disease, unspecified; I10 Essential (primary) hypertension; I25.10 Atherosclerotic heart disease of native coronary artery without angina pectoris; E66.09 Other obesity due to excess calories; E11.51 Type 2 diabetes mellitus with diabetic peripheral angiopathy without gangrene; E78.5 Hyperlipidemia, unspecified; M51.36 Other intervertebral disc degeneration, lumbar region; K57.30 Diverticulosis of large intestine without perforation or abscess without bleeding; E78.00 Pure hypercholesterolemia, unspecified; F17.200 Nicotine dependence, unspecified, uncomplicated; Z53.29 Procedure and treatment not carried out because of patient's decision for other reasons; Z79.84 Long term (current) use of oral hypoglycemic drugs; Z85.820 Personal history of malignant melanoma of skin; Z95.1 Presence of aortocoronary bypass graft; Z68.30 Body mass index [BMI] 30.0-30.9, adult; Z79.02 Long term (current) use of antithrombotics/antiplatelets
CPT/HCPCS: 74177; 80048; 80053; 81003; 81015; 82962; 83690; 83735; 85025; 85027; 86803; 93005; 96361; 96374; 96375; 99285; Q9967

== ENCOUNTER 2024-01-10 14:50 | Outpatient (RCR) | payer OTHER, SELFPAY ==
[2023-12-20 15:31] LABS: Glucose - Point of Care 111 mg/dl (70-99)
[2023-12-20 15:59] LABS: Glucose - Point of Care 95 mg/dl (70-99)
[2023-12-25 15:03] LABS: Glucose - Point of Care 93 mg/dl (70-99)
[2023-12-25 15:45] LABS: Glucose - Point of Care 122 mg/dl (70-99)
[2023-12-27 15:10] LABS: Glucose - Point of Care 90 mg/dl (70-99)
[2023-12-27 15:34] LABS: Glucose - Point of Care 91 mg/dl (70-99)
[2024-01-03 14:42] LABS: Glucose - Point of Care 100 mg/dl (70-99)
[2024-01-03 15:24] LABS: Glucose - Point of Care 95 mg/dl (70-99)
[2024-01-08 14:59] LABS: Glucose - Point of Care 111 mg/dl (70-99)
[2024-01-08 15:37] LABS: Glucose - Point of Care 113 mg/dl (70-99)
[2024-01-10 14:36] LABS: Glucose - Point of Care 99 mg/dl (70-99)
[2024-01-10 15:22] LABS: Glucose - Point of Care 89 mg/dl (70-99)
== END 2024-01-10 23:59 | disposition home or self-care (01) ==
LOC: CRHB 14:50
PROVIDERS: ATTENDING PHYSICIAN Internal Medicine Cardiovascular Disease; FAMILY PHYSICIAN Family Medicine
DX: I25.10 Atherosclerotic heart disease of native coronary artery without angina pectoris (principal); Z95.1 Presence of aortocoronary bypass graft
CPT/HCPCS: 82962; 93797; 93798

== ENCOUNTER 2024-01-17 14:51 | Outpatient (RCR) | payer OTHER, SELFPAY | END 2024-01-17 23:59 | disposition home or self-care (01) | LOC: CRHB 14:51 | PROVIDERS: ATTENDING PHYSICIAN Internal Medicine Cardiovascular Disease; FAMILY PHYSICIAN Family Medicine | DX: I25.10 Atherosclerotic heart disease of native coronary artery without angina pectoris (principal); Z95.1 Presence of aortocoronary bypass graft | CPT/HCPCS: 93797; 93798 ==

== ENCOUNTER → 2024-05-13 17:00 | Outpatient (REF) | payer OTHER, SELFPAY ==
[2024-05-13 18:11] LABS: Troponin I 0.031 ng/ml
== END ==
LOC: REG 17:00
PROVIDERS: ATTENDING PHYSICIAN Nurse Practitioner Family; OTHER PHYSICIAN Family Medicine
DX: R05.3 Chronic cough (principal); Z95.1 Presence of aortocoronary bypass graft; I25.10 Atherosclerotic heart disease of native coronary artery without angina pectoris
CPT/HCPCS: 36415; 71046; 84484

== ENCOUNTER → 2024-06-27 14:55 | Outpatient (REF) | payer OTHER, SELFPAY | LOC: RAD 14:55 | PROVIDERS: ATTENDING PHYSICIAN Family Medicine | DX: M79.89 Other specified soft tissue disorders (principal); R06.02 Shortness of breath; R63.5 Abnormal weight gain | CPT/HCPCS: 71046; 93971 ==

== ENCOUNTER → 2025-02-20 15:52 | Outpatient (REF) | payer OTHER, SELFPAY | LOC: RAD 15:52 | PROVIDERS: ATTENDING PHYSICIAN Internal Medicine Cardiovascular Disease; FAMILY PHYSICIAN Family Medicine | DX: Z95.1 Presence of aortocoronary bypass graft (principal); R60.0 Localized edema | CPT/HCPCS: 93971 ==

== ENCOUNTER → 2025-03-13 13:37 | Outpatient (REF) | payer OTHER, SELFPAY | LOC: RCS 13:37 | PROVIDERS: ATTENDING PHYSICIAN Internal Medicine Cardiovascular Disease; FAMILY PHYSICIAN Family Medicine | DX: Z95.1 Presence of aortocoronary bypass graft (principal) | CPT/HCPCS: 93306; Q9950 ==

== ENCOUNTER → 2025-03-14 07:10 | Outpatient (REF) | payer OTHER, SELFPAY | LOC: RCS 07:10 | PROVIDERS: ATTENDING PHYSICIAN Internal Medicine Cardiovascular Disease; FAMILY PHYSICIAN Family Medicine | DX: Z95.1 Presence of aortocoronary bypass graft (principal) | CPT/HCPCS: 78452; 93017; A9500 ==

== ENCOUNTER 2025-04-01 09:10 | Day surgery (SDC) | payer OTHER, SELFPAY ==
[2025-03-26 12:51] VITALS: BMI 37.6
[2025-03-26 13:45] LABS: Hematocrit 43.5 % (39.0-52.0); Hemoglobin 15.0 g/dL (13.0-18.0); Mean Corp Hgb Conc. 34.5 g/dL (33.0-37.0); Mean Corpuscular Volume 88.8 fL (80.0-94.0); Nucleated Red Blood Cells % 0 % (-); Platelet Count 256 10^3/uL (130-400); Red Cell Dist. Width 12.1 % (11.5-14.5)
[2025-03-26 14:01] LABS: ALT (SGPT) 75 U/L (0-50); AST (SGOT) 35 U/L (17-59); Albumin 4.4 g/dl (3.5-5.0); Alkaline Phosphatase 103 U/L (38-126); Blood Urea Nitrogen 11 mg/dl (9-20); Calcium 9.4 mg/dl (8.4-10.2); Carbon Dioxide 24 mmol/L (22-30); Chloride 107 mmol/L (98-107); Estimated Creatinine Clearance 119 ml/min; Glucose 104 mg/dl (70-99); Potassium 4.2 mmol/L (3.5-5.1); Sodium 139 mmol/L (135-145); Total Protein 7.3 g/dl (6.3-8.2); eGFR > 60.00
[2025-04-01 09:53] VITALS: BP 216/102
[2025-04-01 10:08] VITALS: BP 190/104
[2025-04-01 10:15] LABS: Glucose - Point of Care 107 mg/dl (70-99)
[2025-04-01 10:23] VITALS: BP 192/106
[2025-04-01] MEDS: PLAVIX 75 MG PO (10:32)
[2025-04-01] MEDS: LOW STRENGTH ASPIRIN 81 MG PO (10:33)
[2025-04-01 10:38] VITALS: BP 168/98
[2025-04-01] MEDS: COREG 25 MG PO (10:38)
[2025-04-01] MEDS: NSS 307 ML IV (10:53)
[2025-04-01 15:35] VITALS: BP 171/96
[2025-04-01] MEDS: DIOVAN 80 MG PO (16:09)
--- NOTE | 2025-04-01 19:43 | ITS.CL.PN ---
[employer] - Procedure Note
Procedure
Procedure Note:
CARDIAC CATHETERIZATION REPORT
Date of Procedure: 04/01/2025
Referring: Dr. Fredrick Duron MD
Indication: Progressive atypical angina, positive cardiac stress test
PROCEDURE(S)
1. left heart catheterization
2. coronary angiography
3. bypass graft angiography
ACCESS: 6F right radial artery (closure: radial band)
CATHETERS
1. 6F JR4
2. 6F JL4
3. 6F STAR
4. 6F MPA (best for SVG-RCA)
MODERATE SEDATION: 30 minutes of moderate sedation was utilized. An independent director medical surgical was present to assist with and help manage the patient's level of consciousness and physiologic status.
HEMODYNAMIC DATA
LV 177/14 (EDP 23) mmHg
AO 173/88 (mean 122) mmHg
CORONARY ANGIOGRAPHY
Dominance: right
LM: large without disease
LAD: gives rise to a large branching D1 and small D2. There is an eccentric high grade stenosis in the proximal vessel just after D1. Competitive flow is seen in the mid-distal vessel which is supplied by the SAMANIEGO with excellent runoff.
LCx: gives rise to two very small OM branches and a moderate caliber OM3 that is occluded proximally and supplied by the LEANDRO Y-graft of the SAMANIEGO with excellent runoff.
RCA: totally occluded proximally. The SVG to RCA supplies a small, somewhat atretic appearing RPDA and small RPL system.
BYPASS GRAFT ANGIOGRAPHY:
SAMANIEGO-LAD with LEANDRO Y-graft to OM: patent
SVG-RPDA: patent
RADIATION: dose 824 mGy; DAP 62 Gy*cm2; fluoroscopy time 9.9 min
CONCLUSIONS
1. coronary artery disease status post CABG with patent grafts and no obstructive CAD. RCA territory abnormalities on echo and stress are likely residual from infarction of this territory prior to CABG.
2. moderately elevated LV filling pressure and no aortic stenosis on hemodynamic pullback.
RECOMMENDATIONS
1. aggressive secondary prevention of CAD
2. GDMT for HFpEF and workup for other non-cardiac etiologies of patient's ZHENG
Copy to: Dr. Fredrick Duron MD (audograph operator); Pooja Chandler MD (PCP)
Signed: Nigel Rebolledo MD, PhD
== END 2025-04-01 18:30 | disposition home or self-care (01) ==
LOC: CATH 09:10
PROVIDERS: ATTENDING PHYSICIAN Student in an Organized Health Care Education/Training Program; FAMILY PHYSICIAN Family Medicine; REFERRING PHYSICIAN Internal Medicine Cardiovascular Disease
DX: I25.119 Atherosclerotic heart disease of native coronary artery with unspecified angina pectoris (principal); I11.0 Hypertensive heart disease with heart failure; I50.30 Unspecified diastolic (congestive) heart failure; E78.5 Hyperlipidemia, unspecified; E66.9 Obesity, unspecified; Z68.37 Body mass index [BMI] 37.0-37.9, adult; Z87.891 Personal history of nicotine dependence; J44.9 Chronic obstructive pulmonary disease, unspecified; E11.51 Type 2 diabetes mellitus with diabetic peripheral angiopathy without gangrene; K21.9 Gastro-esophageal reflux disease without esophagitis; Z95.1 Presence of aortocoronary bypass graft; Z79.82 Long term (current) use of aspirin; Z79.899 Other long term (current) drug therapy; Z79.02 Long term (current) use of antithrombotics/antiplatelets; Z79.85 Long-term (current) use of injectable non-insulin antidiabetic drugs; Z79.84 Long term (current) use of oral hypoglycemic drugs; Z82.49 Family history of ischemic heart disease and other diseases of the circulatory system
CPT/HCPCS: 36415; 80053; 82962; 85025; 93005; 93459; 99152; 99153; C1760; C1769; C1894; Q9967